=== PATIENT | male | born 1945 | race Caucasian/White ===

== ENCOUNTER 2016-10-28 18:36 | Inpatient (IN) | payer BC, MEDICARE ==
--- NOTE | 2016-10-28 20:23 | RAD ---
HISTORY: Fall from ladder, left thigh pain COMPARISONS: None VIEWS: 5, Frontal and lateral views of the left femur FINDINGS: BONE DENSITY: Normal. BONES: There is an intertrochanteric fracture of the proximal left femur with approximately 1.4 cm of distraction of the distal fragment with suspected the proximal fragment. JOINTS: There is no arthropathy. ALIGNMENT: There is no dislocation. SOFT TISSUES: Unremarkable. OTHER FINDINGS: Brachytherapy seeds are noted IMPRESSION: FRACTURE OF THE PROXIMAL LEFT FEMUR
--- NOTE | 2016-10-28 20:24 | RAD ---
HISTORY: Fall from ladder, left thigh pain COMPARISONS: Left femur dated October 28, 2016 VIEWS: 1, Single frontal view of the pelvis FINDINGS: BONE DENSITY: Normal. BONES: Again noted is a somewhat displaced intertrochanteric fracture of the proximal left femur JOINTS: There is no arthropathy. ALIGNMENT: There is no dislocation. SOFT TISSUES: Brachytherapy seeds are noted OTHER FINDINGS: Degenerative changes are noted of the spine IMPRESSION: AGAIN NOTED IS A FRACTURE OF THE PROXIMAL LEFT FEMUR
--- NOTE | 2016-10-28 20:26 | RAD ---
HISTORY: Fall from ladder, left thigh pain COMPARISONS: August 15, 2013 VIEWS:1: Single frontal portable view of the chest at 7:51 PM FINDINGS: LINES AND TUBES: None. CARDIOMEDIASTINAL SILHOUETTE: The cardiomediastinal silhouette is normal for portable technique. PLEURA: The costophrenic angles are sharp. No pleural abnormalities are noted. LUNG PARENCHYMA: The lungs are clear. ABDOMEN: The upper abdomen is clear. There is no subphrenic gas. BONES AND SOFT TISSUES: No bone or soft tissue abnormalities are noted. There are small radiopaque foreign bodies overlying the left and right lower hemithorax. It is unclear this is overlying the patient or within the patient. IMPRESSION: SMALL RADIOPAQUE FOREIGN BODIES OVERLYING THE LOWER CHEST. IT IS UNCLEAR IF THIS IS ARTIFACT OVERLYING THE PATIENT OR WITHIN THE CHEST. OTHERWISE, NO ACTIVE CARDIOPULMONARY DISEASE
[2016-10-28 20:32] LABS: Hematocrit 40 % (42-52); Hemoglobin 13.4 g/dl (14.0-18.0); Mean Corpuscular HGB Conc 33 g/dl (31-36); Mean Corpuscular Hemoglobin 30 pg (27-31); Mean Corpuscular Volume 90 fL (80-94); Mean Platelet Volume 8 um3 (7.4-10.4); Red Blood Count 4.46 10^6/ul (4.0-5.4); Red Cell Distribution Width 13 % (10.5-15); White Blood Count 14.2 10^3/ul (3.5-10.8)
[2016-10-28 20:50] LABS: Albumin 4.2 g/dL (3.2-5.2); BUN/Creatinine Ratio 27.2 (8-20); Calcium 9.4 mg/dL (8.6-10.3); EGFR African American 120.8 (>60); EGFR Non-African American 93.9 (>60); Potassium 3.8 mmol/L (3.5-5.0); Total Bilirubin 0.4 mg/dL (0.2-1.0); Total Protein 7.2 g/dL (6.4-8.9)
[2016-10-28] MEDS ORDERED: NS 0.9% 1000 ML* 1,000 ML IV ONE (21:18)
--- NOTE | 2016-10-28 21:24 | RAD ---
HISTORY: Fall, fracture, history of prostate cancer COMPARISONS: Plain film dated October 28, 2016 TECHNIQUE: Multiple contiguous axial CT images are obtained of the left femur, with coronal and sagittal multiplanar reconstructions, without intravenous contrast administration. FINDINGS: BONE DENSITY: Normal. BONES: Again noted is a comminuted intertrochanteric fracture of the proximal left femur. There is diastasis along the fracture line, with approximately 1.4 cm of displacement of the distal fragment with respect to the proximal fragment. JOINTS: There is mild osteoarthritis of the hip and knee. MUSCULATURE: Unremarkable ALIGNMENT: There is no dislocation. SOFT TISSUES: Brachytherapy seeds are noted. OTHER FINDINGS: None. IMPRESSION: AGAIN NOTED IS A COMMINUTED AND SOMEWHAT DISPLACED FRACTURE OF THE PROXIMAL LEFT FEMUR
[2016-10-28] MEDS ORDERED: hydrALAZINE IV* 20 MG/ML VIAL IV PRN (23:22)
[2016-10-28] MEDS ORDERED: Morphine INJ* 2 MG/ML 1 ML CARPUJECT IV PRN (23:22)
[2016-10-28] MEDS ORDERED: Acetaminophen TAB* 325 MG ONE (23:32)
[2016-10-28] MEDS: Acetaminophen TAB* 325 MG PO PRN (23:33)
[2016-10-28] MEDS: NS 0.9% 1000 ML* 1,000 ML IV SCH (23:35)
--- NOTE | 2016-10-29 01:03 | HP ---
ADMISSION HISTORY AND PHYSICAL: DATE OF ADMISSION: 10/28/16 PRIMARY CARE PROVIDER: Dr. Beavers. HEALTHCARE PROXY: . CODE STATUS: Full. SOURCE OF HISTORY: History obtained from interview with the patient and his . RELIABILITY: Fair. CHIEF COMPLAINT: Fall with hip pain. HISTORY OF PRESENT ILLNESS: This is a 70-year-old man with past medical history of prostate cancer in 2002, status post radiation and bead implantation , last PSA checked 1-1/2 years ago which was normal per patient report. He was in his usual state of health, on a ladder emptying the gutter today when he suffered a fall after the ladder slipped out from under him with fall on his hip with immediate pain. The patient presented to the emergency room. Imaging was consistent with a comminuted and somewhat displaced fracture of the proximal left femur. The hospitalist service was consulted for admission. There was some concern that the bone appeared abnormal on x-ray and the CT was ordered to further investigate. The concern is that this is pathological fracture potentiated by underlying prostate cancer. The patient has previous history of prostate cancer 13 years prior. He has been in very good health. He rides his bike to work to [place] every day uphill, usually takes state 3. Two years prior was the last time he completed around the [place], 100 miles. He never experienced chest pain, shortness of breath. He has no diabetes or known kidney injury. His only anesthesia was in the setting of having the beads inserted for his prostate cancer which he did not suffer any adverse effects. In the emergency room, he received minimal analgesics secondary to his lack of pain. He is pleasant on interview and noted no pain in his left hip if he did not move it. PAST MEDICAL HISTORY: Prostate cancer in 2002, status post rads and implantation of beads. MEDICATIONS: Flomax 0.4 mg. ALLERGIES: No known drug allergies. FAMILY HISTORY: Brother had lung cancer associated with smoking. No history of CAD. 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 Smoked 2 to 5 years when he was a student, 50 years prior, drinks a glass of wine or beer every other day. No history of illicits. He lives with his . REVIEW OF SYSTEMS: Negative for all systems reviewed except for pain in his left hip. PHYSICAL EXAMINATION GENERAL: Younger than stated age, lying flat in bed, interactive, no apparent distress. VITALS: When seen by this author ,167/73, heart rate 79, respiratory rate 18, T - max in the emergency room 98.3, 98% on room air. HEENT: Oropharynx is clear. He has dry mucous membranes. Sclerae anicteric. NECK: Non-elevated JVD. No cervical or supraclavicular lymphadenopathy. LUNGS: Clear to auscultation bilaterally. HEART: Regular rate and rhythm. No murmurs, rubs or gallops. ABDOMEN: Soft, nontender, nondistended. There are positive bowel sounds. EXTREMITIES: Warm and well-perfused. He has 2+ peripheral pulses and radial DP and TP. 1 to 2+ pitting edema, bilateral lower extremities. Less than 2- second cap refill. Good skin turgor. Intact sensation in bilateral lower extremities. Neurovascular function intact. NEURO: He is A and O x3. His cranial nerves II through XII are intact. DIAGNOSTIC STUDIES/LAB DATA: Labs reviewed. White blood cell count is 14.2, 87.2% neutrophils, hemoglobin 13.4, no prior for comparison, platelets 206. INR 0.98. BUN 22, creatinine 0.81. Lactic acid 1.4. Data reviewed. CT lower extremity, impression: Comminuted and somewhat displaced fracture of the proximal left femur. ASSESSMENT AND PLAN: A 70-year-old man with past medical history of prostate cancer, suffered fall from a ladder, complicated by a left femoral fracture. Left femoral fracture. Nuclear bone scan after discussion with Dr. Virgen. Dr. Virgen will see tomorrow. Remain n.p.o. for possible OR in the afternoon. The patient would like to avoid strong medications for pain. Tylenol 975 mg 3 times a day as needed with morphine 2 mg IV backup. Maintenance fluids while he remains n.p.o. History of prostate cancer. Check PSA in the morning. Bone scan as indicated above. Hypertension. Likely in the setting of pain. On no home oral medications. Hydralazine p.r.n. if systolic blood pressure is greater than 180 or diastolic is greater than 110, reevaluate after pain better controlled. FEN, n.p.o. except for meds. Maintenance fluids at 75 cc per hour. Code status. Full. CC: Dr. Beavers* [id number]/[facility] #: [id number] [facility]
[2016-10-29] MEDS: Heparin VIAL(*) 5000 UNITS/ML VIAL (FIVE THOUSAND) SUBCUT SCH ×3 (05:53→23:02)
[2016-10-29 06:44] LABS: Hematocrit 36 % (42-52); Hemoglobin 12.3 g/dl (14.0-18.0); Mean Corpuscular HGB Conc 34 g/dl (31-36); Mean Corpuscular Hemoglobin 31 pg (27-31); Mean Corpuscular Volume 90 fL (80-94); Mean Platelet Volume 8 um3 (7.4-10.4); Red Cell Distribution Width 13 % (10.5-15); White Blood Count 6.4 10^3/ul (3.5-10.8)
[2016-10-29 07:03] LABS: BUN/Creatinine Ratio 19.5 (8-20); Calcium 8.5 mg/dL (8.6-10.3); EGFR African American 128.1 (>60); EGFR Non-African American 99.6 (>60); Potassium 3.6 mmol/L (3.5-5.0)
[2016-10-29] MEDS: Acetaminophen TAB* 325 MG PO PRN (07:51)
[2016-10-29] MEDS: Tamsulosin CAP* 0.4 MG PO SCH (07:51)
[2016-10-29] MEDS ORDERED: Pneumococcal *Vac Polyvalent 0.5 ML VIAL IM ONE (09:00)
[2016-10-29] MEDS ORDERED: Influenza VAC *QUAD* 2016-17* 0.5 ML SYRINGE IM ONE (09:00)
[2016-10-29] MEDS ORDERED: Buffered Lidocaine 1% SYR 3ML* 3 ML/SYR SYRINGE INTRADERM ONE (11:28)
--- NOTE | 2016-10-29 12:30 | RAD ---
INDICATION: Prostate carcinoma evaluate for metastatic disease. Comparison: Correlation is made with a prior x-ray study of the pelvis from October 28, 2016. Technique: The patient was given an intravenous injection of 22.0 mCi of technetium 99m HDP, and the whole body was imaged in both the anterior and posterior projections. FINDINGS: There is abnormal increased activity present in the proximal left femur correlating with the patient's known intertrochanteric hip fracture. There is mild abnormal increased activity present within the knees and ankles and feet most consistent with arthritic change. No other abnormal foci of increased activity are seen. There is normal bilateral renal activity. IMPRESSION: 1. NO EVIDENCE FOR METASTATIC DISEASE. 2. INCREASED ACTIVITY IN THE PROXIMAL LEFT FEMUR CORRELATING WITH THE PATIENT'S KNOWN HIP FRACTURE. CPT II Codes: 3570F
[2016-10-29] MEDS ORDERED: Bupivacaine 0.5% SDV PF* 30 ML VIAL ONE ×2 (14:16→16:28)
--- NOTE | 2016-10-29 14:55 | PN ---
Subjective Date of Service: 10/29/16 Interval History: Mr. Cortez complains of some hip pain but he denies other complaint including chest pain, SOB, nausea, or abdominal pain. Objective Active Medications: Acetaminophen (Tylenol Tab*) 975 mg PO TID PRN Famotidine (Pepcid Iv*) 20 mg IV ONCE ONE Heparin Sodium (Porcine) (Heparin Vial(*)) 5,000 units SUBCUT Q8HR CADEN Hydralazine HCl (Apresoline Iv*) 5 mg IV Q6H PRN Sodium Chloride (Ns 0.9% 1000 Ml*) 1,000 mls @ 75 mls/hr IV PER RATE CADEN Lactated Ringer's (Lactated Ringers 1000 Ml Bag*) 1,000 mls @ 125 mls/hr IV PER RATE CADEN Influenza Virus Vaccine (Fluarix *Quad* *) 0.5 ml IM .ONCE ONE Metoclopramide HCl (Reglan Tab*) 10 mg PO ONCE ONE Morphine Sulfate (Morphine Inj (Syringe)*) 2 mg IV Q3H PRN Pneumococcal Polyvalent Vaccine (Pneumococcal Vac Polyvalent*) 0.5 ml IM .ONCE ONE Tamsulosin HCl (Flomax Cap*) 0.4 mg PO DAILY [facility] Vital Signs 10/28/16 10/28/16 10/29/16 23:30 23:53 00:46 Temperature 98.2 F 97.8 F Pulse Rate 77 71 Respiratory 16 Rate Blood Pressure 164/75 152/67 (mmHg) O2 Sat by Pulse 97 99 Oximetry 10/29/16 10/29/16 10/29/16 00:49 01:31 03:39 Temperature 97.8 F 97.6 F Pulse Rate 71 72 Respiratory 16 16 16 Rate Blood Pressure 152/67 118/65 (mmHg) O2 Sat by Pulse 99 99 Oximetry 10/29/16 10/29/16 10/29/16 07:13 08:00 11:19 Temperature 98.0 F 97.7 F Pulse Rate 69 68 Respiratory 16 16 17 Rate Blood Pressure 141/68 134/59 (mmHg) O2 Sat by Pulse 97 99 Oximetry Oxygen Devices in Use Now: None Appearance: Male lying in bed in NAD Respiratory: Symmetrical Chest Expansion and Respiratory Effort, Clear to Auscultation Cardiovascular: NL Sounds; No Murmurs; No JVD, No Edema Abdominal: NL Sounds; No Tenderness; No Distention Extremities: No Edema Skin: No Rash or Ulcers Neurological: Alert and Oriented x 3, NL Muscle Strength and Tone Nutrition: Taking PO's Result Diagrams: 10/29/16 06:16 10/29/16 06:16 Assess/Plan/Problems-Billing Assessment: Mr. Cortez is a 70 yo male with a PMH of prostate cancer who was admitted on 10/28/16 with a left hip fracture. - Patient Problems (1) Closed left hip fracture Comment: Management per ortho, plan for surgery today. Pain meds prn, bowel regimen. (2) Prostate cancer Comment: S/P radiation. Continue flomax. (3) Hypertension Comment: SBP 110-130s. High blood pressure earlier likely due to pain. (4) DVT prophylaxis Comment: Heparin SQ. (5) Full code status Status and Disposition: Inpatient. Disposition per ortho.
--- NOTE | 2016-10-29 15:26 | CONS ---
CC: Dr. Beavers CONSULTATION REPOT: DATE OF CONSULT: 10/29/16 ADMISSION ATTENDING PHYSICIAN: Jamar Rahman MD. CONSULTING PHYSICIAN: Jeremie Virgen MD. HEALTHCARE PROXY: His . PRIMARY CARE PHYSICIAN: Dr. Beavers. CODE STATUS: Full code. CHIEF COMPLAINT: Left hip pain. HISTORY OF PRESENT ILLNESS: Briefly, Norm Cortez is a 70-year-old male with a past medical history of prostate cancer, status post radiation and bead implantation, who was in his usual state of health, on the ladder, emptying the gutter and he suffered a fall about 5 to 6 feet down and he had immediate pain in his left hip. He states he bounced a few times. He then came to the ED after which he underwent imaging and was diagnosed with a proximal femur fracture. At that time, Orthopedics was consulted. There was concern because of his history of prostate cancer that it was an unusual fracture and CT scan imaging was done, which revealed no obvious mass after which he was then admitted to the medicine service for medical optimization. He states that he is a community ambulator. 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 He, otherwise, is in his usual state of health. His last PSA was checked about 1-1/2 years ago and his cancer history was about 13 to 15 years ago. He is very active and he bikes in general. He had no left hip pain prior to this incident although he has had falls in the past. Approximately 1 year ago, he fell in [facility] and underwent xrays which diagnosed him with a "chip in his hip". He did not have this treated and was able to continue to [place] and bike with time. PAST MEDICAL HISTORY: Significant for prostate cancer in 2002. PAST SURGICAL HISTORY: Significant for prostatectomy with implantation of beads. MEDICATIONS: Include Flomax. ALLERGIES: None. FAMILY HISTORY: Significant for brother who had lung cancer associated with smoking. No history of coronary artery disease or diabetes. 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 He drinks a glass of wine or beer every other day. He denies illicits. He lives with his . He is a community ambulator. REVIEW OF SYSTEMS: A 14-point review of systems was reviewed with the patient and significant only for the above complaints. Otherwise, remainder of the systems is negative. PHYSICAL EXAMINATION: GENERAL: He is in no acute distress. He is well developed, well nourished. He is alert and oriented x3. He is conversant. VITAL SIGNS: Temperature of 97.6, pulse is 72, respiratory rate 16, O2 of 99% on room air. Blood pressure 118/65. HEENT: EOMI. LUNGS: Chest is clear to auscultation bilaterally. HEART: Regular rate and rhythm. No murmurs, rubs or gallops. ABDOMEN: Soft, nontender. EXTREMITIES: Examination of the left lower extremity demonstrates an externally rotated hip. His calf is soft and nontender. He is able to dorsiflex and plantarflex his ankle. He is sensate to light touch about the first dorsal web space. Medial, lateral, dorsal and plantar foot, he has a palpable posterior tib pulse. He is nontender about his knee or ankle. LABORATORY STUDIES: He has this morning a white count of 6.4, hematocrit of 36 , platelet count of 191. Yesterday's PTT and INR are 28.3 and 0.98 respectively. BMP today, sodium 135, potassium 3.6, chloride 104, carbon dioxide 25, BUN 15, creatinine 0.77, glucose 100, calcium 8.5. PSA is 0.019. X-rays and CT scans demonstrate an intertrochanteric fracture with some displacement and slight basicervical involvement. He also has complete displacement of the greater trochanter which appears to be chronic. There are no lesions in the bone that are evident. There are no other lesions in the pelvis that are evident. There is no obvious lesion in the femur that indicates a lytic lesion. ASSESSMENT AND PLAN: He does have a remote history of prostate cancer. He has been in remission for several years. He has a normal PSA today and had a previous normal PSA. He has had no symptoms of hip pain prior to this. We will treat him with a short intramedullary nail for his left hip after he undergoes medical optimization. I will also obtain a bone scan in the morning prior to surgery to make sure he does not have any lesions anywhere else in the body. We will also do a biopsy at the time of surgery. [id number]/[facility] #: [id number] MTDD
[2016-10-29] MEDS ORDERED: Famotidine IV* 10 MG/ML 2 ML (20 mg) IV ONE (16:00)
[2016-10-29] MEDS ORDERED: Metoclopramide TAB* 10 MG PO ONE (16:00)
[2016-10-29] MEDS ORDERED: Propofol* 10 MG/ML 20 ML BTL IV PUSH ONE (16:28)
[2016-10-29] MEDS ORDERED: Dexamethasone IV* 4 MG/ML 1 ML (4 MG) ONE (16:28)
[2016-10-29] MEDS ORDERED: Lidocaine 2% PF* 10 ML AMP ONE (16:28)
[2016-10-29] MEDS ORDERED: Ketorolac INJ* 30 MG/ML 1 ML VIAL ONE (16:28)
[2016-10-29] MEDS ORDERED: Ondansetron INJ* 2 MG/ML VIAL ONE (16:28)
[2016-10-29] MEDS ORDERED: KETAMINE HCL* 50 MG/ML 10 ML VIAL ONE (16:29)
[2016-10-29] MEDS ORDERED: Midazolam* 1 MG/ML 5 ML VIAL (5 MG) ONE (16:29)
[2016-10-29] MEDS ORDERED: fentaNYL* 50 MCG/ML 2 ML VIAL (100 MCG VIAL) ONE (16:29)
[2016-10-29] MEDS ORDERED: Morphine PF AMP (0.5MG/ML)* 5 MG/10 ML AMP ONE (16:29)
[2016-10-29] MEDS ORDERED: Metoclopramide TAB* 10 MG ONE (16:40)
[2016-10-29] MEDS ORDERED: Famotidine IV* 10 MG/ML 2 ML (20 mg) ONE (16:40)
[2016-10-29] MEDS ORDERED: Propofol* 500 MG/50 ML BTL ONE (18:06)
[2016-10-29] MEDS ORDERED: ceFAZolin 2 GM PREMIX (*) 2 GM/50 ML BAG IVPB ONE (18:30)
[2016-10-29] MEDS ORDERED: Ondansetron INJ* 2 MG/ML VIAL IV PRN ×2 (19:32→19:35)
[2016-10-29] MEDS ORDERED: diPHENhydraMINE IV* 50 MG/ML 1 ml VIAL (BENADRYL) IV PRN (19:35)
[2016-10-29] MEDS ORDERED: Naloxone* 0.4 MG/ML 1 ML VIAL IV PRN (19:35)
[2016-10-29] MEDS: Acetaminophen TAB* 325 MG PO SCH (21:52)
[2016-10-30] MEDS: NS 0.9% 1000 ML* 1,000 ML IV SCH (00:43)
[2016-10-30] MEDS: Heparin VIAL(*) 5000 UNITS/ML VIAL (FIVE THOUSAND) SUBCUT SCH ×2 (06:48→15:28)
--- NOTE | 2016-10-30 07:30 | PN ---
Progress Note - Progress Note Note: Case cancelled last evening due to contamination issues with instrumentation. Also, discussed with family that the fracture is more complex than originally anticipated. Discussed today with patient the same fracture pattern and his options. I would still recommend the original plan for surgery. He may seek a second opinion. Pt comfortable. Rankin in place. at bedside Temp Pulse Resp BP Pulse Ox 98.0 F 66 16 112/58 98 10/30/16 03:42 10/30/16 03:42 10/30/16 03:42 10/30/16 03:42 10/30/16 03:42 NAD. left leg skin intact. SILT grossly distally. Brisk cap refill. A/P Pt with left intertrochanteric hip fracture with extension into femoral neck. He also has previous history of greater trochanter fracture that is completely displaced from a previous injury. I would still recommend IMN of left hip however I discussed that there are other treatment options, specifically a blade plate or proximal femoral replacement. Bone scan negative for lesions. NPO for possible surgery today Pt and will discuss options and may elect for transfer to [place] for definitive management. Else, would plan for IMN of left hip today. SCDs Abx OCTOR analgesia
[2016-10-30] MEDS: Acetaminophen TAB* 325 MG PO SCH ×3 (07:41→21:33)
[2016-10-30] MEDS: Tamsulosin CAP* 0.4 MG PO SCH (07:41)
[2016-10-30] MEDS ORDERED: Buffered Lidocaine 1% SYR 3ML* 3 ML/SYR SYRINGE INTRADERM SCH (12:37)
[2016-10-30] MEDS ORDERED: Famotidine IV* 10 MG/ML 2 ML (20 mg) IV SCH (12:37)
[2016-10-30] MEDS ORDERED: Famotidine IV* 10 MG/ML 2 ML (20 mg) ONE (13:22)
[2016-10-30] MEDS ORDERED: Midazolam* 1 MG/ML 2 ML VIAL (2 MG) ONE (14:05)
[2016-10-30] MEDS ORDERED: Morphine PF AMP (0.5MG/ML)* 5 MG/10 ML AMP ONE (14:06)
--- NOTE | 2016-10-30 14:51 | PN ---
Subjective Date of Service: 10/30/16 Interval History: Mr. Cortez is examined in the immediate post-operative period while still in the PACU. He denies any complaint including chest pain, SOB, nausea, or abdominal pain. Objective Active Medications: Acetaminophen (Tylenol Tab*) 975 mg PO TID PRN Acetaminophen (Tylenol Tab*) 975 mg PO TID [facility] Famotidine (Pepcid Iv*) 20 mg IV ONCE [facility] Heparin Sodium (Porcine) (Heparin Vial(*)) 5,000 units SUBCUT Q8H CADEN Hydralazine HCl (Apresoline Iv*) 5 mg IV Q6H PRN Sodium Chloride (Ns 0.9% 1000 Ml*) 1,000 mls @ 75 mls/hr IV PER RATE CADEN Lactated Ringer's (Lactated Ringers 1000 Ml Bag*) 1,000 mls @ 125 mls/hr IV PER RATE [facility] Influenza Virus Vaccine (Fluarix *Quad* *) 0.5 ml IM .ONCE ONE Lidocaine/Sodium Bicarbonate (Buffered Lidocaine 1% Syrin*) 0.2 ml INTRADERM ONCE [facility] Morphine Sulfate (Morphine Inj (Syringe)*) 2 mg IV Q3H PRN Pneumococcal Polyvalent Vaccine (Pneumococcal Vac Polyvalent*) 0.5 ml IM .ONCE ONE Tamsulosin HCl (Flomax Cap*) 0.4 mg PO DAILY [facility] Vital Signs 10/29/16 10/29/16 10/29/16 15:13 19:29 19:35 Temperature 97.7 F 97.7 F Pulse Rate 65 57 59 Respiratory 15 11 11 Rate Blood Pressure 137/72 108/64 109/53 (mmHg) O2 Sat by Pulse 100 100 100 Oximetry 10/29/16 10/29/16 10/29/16 19:40 19:45 19:50 Temperature Pulse Rate 64 66 65 Respiratory 11 10 12 Rate Blood Pressure 116/58 109/58 130/57 (mmHg) O2 Sat by Pulse 100 100 100 Oximetry 10/29/16 10/29/16 10/29/16 19:59 20:15 20:29 Temperature Pulse Rate 59 58 61 Respiratory 10 10 14 Rate Blood Pressure 127/65 122/56 138/60 (mmHg) O2 Sat by Pulse 100 98 100 Oximetry 10/29/16 10/29/16 10/29/16 20:55 22:00 23:46 Temperature 97.4 F 97.3 F Pulse Rate 59 59 Respiratory 16 16 16 Rate Blood Pressure 135/61 121/62 (mmHg) O2 Sat by Pulse 100 100 Oximetry 10/30/16 10/30/16 10/30/16 03:42 07:32 08:00 Temperature 98.0 F 97.9 F Pulse Rate 66 63 Respiratory 16 16 18 Rate Blood Pressure 112/58 117/61 (mmHg) O2 Sat by Pulse 98 98 98 Oximetry 10/30/16 10/30/16 08:48 11:39 Temperature 97.8 F Pulse Rate 63 Respiratory 16 Rate Blood Pressure 109/49 (mmHg) O2 Sat by Pulse 98 96 Oximetry Oxygen Devices in Use Now: None Appearance: Male lying in bed in NAD Eyes: No Scleral Icterus Ears/Nose/Mouth/Throat: Mucous Membranes Moist Respiratory: Symmetrical Chest Expansion and Respiratory Effort, Clear to Auscultation Cardiovascular: NL Sounds; No Murmurs; No JVD, No Edema Abdominal: NL Sounds; No Tenderness; No Distention Extremities: No Edema Skin: No Rash or Ulcers Neurological: Alert and Oriented x 3, NL Muscle Strength and Tone Result Diagrams: 10/29/16 06:16 10/29/16 06:16 Assess/Plan/Problems-Billing Assessment: Mr. Cortez is a 70 yo male with a PMH of prostate cancer who was admitted on 10/28/16 with a left hip fracture. - Patient Problems (1) Closed left hip fracture Comment: POD # 0, management per ortho. Pain meds prn, bowel regimen. PT/OT. Monitor H/H. (2) Prostate cancer Comment: S/P radiation. Continue flomax. (3) Hypertension Comment: SBP 110-130s. High blood pressure earlier likely due to pain. (4) DVT prophylaxis Comment: Heparin SQ. (5) Full code status Status and Disposition: Inpatient. Disposition per ortho.
[2016-10-30] MEDS ORDERED: ceFAZolin 2 GM PREMIX (*) 2 GM/50 ML BAG IVPB ONE (15:08)
[2016-10-30] MEDS ORDERED: Ketorolac INJ* 30 MG/ML 1 ML VIAL IV PRN (16:18)
[2016-10-30] MEDS ORDERED: Ondansetron INJ* 2 MG/ML VIAL IV PRN (16:18)
[2016-10-30] MEDS ORDERED: oxyCODONE/Acetamin 5/325 MG* TAB PO PRN (16:18)
[2016-10-30] MEDS ORDERED: Naloxone* 0.4 MG/ML 1 ML VIAL IV PRN (16:18)
[2016-10-30] MEDS ORDERED: PROCHLORPERAZINE INJ 5 MG/ML 2 ML VIAL IV PRN (16:18)
--- NOTE | 2016-10-30 17:47 | RAD ---
INDICATION: Left hip fracture, left hip ORIF COMPARISONS: October 28, 2016 TECHNIQUE: Fluoroscopy was provided for a surgical procedure. Total fluoroscopy time is: 1 minute, 2.9 seconds FINDINGS: Spot images of restricted internal fixation of the proximal left femur IMPRESSION: FLUOROSCOPY WAS PROVIDED FOR A SURGICAL PROCEDURE CPT II Codes: 6045F
[2016-10-30] MEDS: Docusate CAP* 100 MG PO SCH (21:33)
[2016-10-30] MEDS: ceFAZolin 1 GM in Dextrose (*) 1 GM/50 ML BAG IVPB SCH (21:33)
[2016-10-30] MEDS ORDERED: Nalbuphine* 20 MG/ML 1 ML VIAL IV PRN (21:52)
[2016-10-30] MEDS ORDERED: Nalbuphine* 20 MG/ML 1 ML VIAL ONE (22:06)
[2016-10-31] MEDS: ceFAZolin 1 GM in Dextrose (*) 1 GM/50 ML BAG IVPB SCH ×2 (03:47→09:03)
--- NOTE | 2016-10-31 06:54 | PN ---
Subjective Date of Service: 10/31/16 Interval History: Mr. Cortez states that he is feeling great today. He reports ambulating to the door and doing very well with both PT and OT. He denies complaint including chest pain, SOB, nausea, or abdominal pain. Objective Active Medications: Acetaminophen (Tylenol Tab*) 975 mg PO TID PRN Acetaminophen (Tylenol Tab*) 975 mg PO TID [facility] Docusate Sodium (Colace Cap*) 100 mg PO BID [facility] Enoxaparin Sodium (Lovenox(*)) 40 mg SUBCUT DAILY [facility] Hydralazine HCl (Apresoline Iv*) 5 mg IV Q6H PRN Cefazolin Sodium/Dextrose (Kefzol 1 Gm In Dextrose Duplex (*)) 1 gm in 50 mls @ 200 mls/hr IVPB Q6H [facility] Influenza Virus Vaccine (Fluarix *Quad* *) 0.5 ml IM .ONCE ONE Ketorolac Tromethamine (Toradol Inj*) 15 mg IV Q6H PRN Morphine Sulfate (Morphine Inj (Syringe)*) 2 mg IV Q3H PRN Nalbuphine HCl (Nubain*) 5 mg IV Q6H PRN Naloxone HCl (Narcan*) 0.08 mg IV Q2M PRN Ondansetron HCl (Zofran Inj*) 2 mg IV Q6H PRN Oxycodone/Acetaminophen (Percocet 5/325 Tab*) 1 tab PO Q3H PRN Oxycodone/Acetaminophen (Percocet 5/325 Tab*) 1 tab PO Q4H PRN Pneumococcal Polyvalent Vaccine (Pneumococcal Vac Polyvalent*) 0.5 ml IM .ONCE ONE Prochlorperazine Edisylate (Compazine Inj*) 2.5 mg IV Q6H PRN Tamsulosin HCl (Flomax Cap*) 0.4 mg PO DAILY [facility] Vital Signs 10/30/16 10/30/16 10/30/16 07:32 08:00 08:48 Temperature 97.9 F Pulse Rate 63 Respiratory 16 18 Rate Blood Pressure 117/61 (mmHg) O2 Sat by Pulse 98 98 98 Oximetry 10/30/16 10/30/16 10/30/16 11:39 17:19 17:25 Temperature 97.8 F 97.0 F Pulse Rate 63 62 66 Respiratory 16 16 16 Rate Blood Pressure 109/49 109/52 109/47 (mmHg) O2 Sat by Pulse 96 98 99 Oximetry 10/30/16 10/30/16 10/30/16 17:30 17:35 17:45 Temperature Pulse Rate 63 64 63 Respiratory 16 17 18 Rate Blood Pressure 124/53 119/54 127/56 (mmHg) O2 Sat by Pulse 99 99 99 Oximetry 10/30/16 10/30/16 10/30/16 18:00 18:15 18:30 Temperature Pulse Rate 65 65 63 Respiratory 18 16 17 Rate Blood Pressure 141/56 132/67 131/56 (mmHg) O2 Sat by Pulse 97 97 97 Oximetry 10/30/16 10/30/16 10/30/16 18:45 19:00 19:19 Temperature 97.8 F Pulse Rate 64 63 66 Respiratory 16 16 12 Rate Blood Pressure 107/42 118/52 134/67 (mmHg) O2 Sat by Pulse 97 97 99 Oximetry 10/30/16 10/30/16 10/30/16 19:28 19:37 20:27 Temperature 97.8 F 98.1 F Pulse Rate 66 82 Respiratory 14 12 16 Rate Blood Pressure 134/67 122/45 (mmHg) O2 Sat by Pulse 99 99 Oximetry 10/30/16 10/30/16 10/30/16 21:19 22:11 23:11 Temperature 97.2 F Pulse Rate 81 Respiratory 16 16 16 Rate Blood Pressure 125/44 (mmHg) O2 Sat by Pulse 100 Oximetry 10/30/16 10/31/16 10/31/16 23:32 00:00 01:20 Temperature 98.1 F 98.4 F Pulse Rate 84 77 Respiratory 16 16 Rate Blood Pressure 123/47 124/58 (mmHg) O2 Sat by Pulse 96 98 98 Oximetry 10/31/16 10/31/16 04:11 06:41 Temperature 98.3 F Pulse Rate 68 Respiratory 20 16 Rate Blood Pressure 118/51 (mmHg) O2 Sat by Pulse 97 Oximetry Oxygen Devices in Use Now: None Appearance: Male sitting up in chair in NAD Respiratory: Symmetrical Chest Expansion and Respiratory Effort, Clear to Auscultation Cardiovascular: NL Sounds; No Murmurs; No JVD, No Edema Abdominal: NL Sounds; No Tenderness; No Distention Extremities: No Edema Skin: No Rash or Ulcers Neurological: Alert and Oriented x 3, NL Muscle Strength and Tone Nutrition: Taking PO's Result Diagrams: 10/31/16 09:20 10/31/16 09:20 Assess/Plan/Problems-Billing Assessment: Mr. Cortez is a 70 yo male with a PMH of prostate cancer who was admitted on 10/28/16 with a left hip fracture. - Patient Problems (1) Closed left hip fracture Comment: POD # 1, management per ortho. Pain meds prn, bowel regimen. PT/OT. Monitor H/H. (2) Prostate cancer Comment: S/P radiation. Continue flomax. (3) Hypertension Comment: SBP 110-130s. High blood pressure earlier likely due to pain. (4) DVT prophylaxis Comment: Heparin SQ. (5) Full code status Status and Disposition: Inpatient. Disposition per ortho.
--- NOTE | 2016-10-31 08:31 | PN ---
Progress Note - Progress Note Note: POD#1 from L hip IMN with biopsy Doing well. slight discomfort. Sitting up working on laptop this AM Temp Pulse Resp BP Pulse Ox 98.3 F 75 18 120/49 94 10/31/16 07:33 10/31/16 07:33 10/31/16 07:33 10/31/16 07:33 10/31/16 07:33 NAD. left hip dressing intact. calf soft, nontender. SILT grossly distally, brisk cap refill. A/P POD#1 from L hip IMN. follow up pathology partial weight bearing PT/OT post op abx dvt ppx for 6 weeks with lovenox dressing change tomorrow dispo when stable. labs pending
[2016-10-31] MEDS: Acetaminophen TAB* 325 MG PO SCH ×3 (09:00→20:26)
[2016-10-31] MEDS: Docusate CAP* 100 MG PO SCH ×2 (09:00→20:26)
[2016-10-31] MEDS ORDERED: Pneumococcal *Vac Polyvalent 0.5 ML VIAL IM ONE (09:00)
[2016-10-31] MEDS: Tamsulosin CAP* 0.4 MG PO SCH (09:00)
[2016-10-31] MEDS ORDERED: Influenza VAC *QUAD* 2016-17* 0.5 ML SYRINGE IM ONE (09:00)
[2016-10-31] MEDS: Enoxaparin(*) 40 MG/0.4 ML SYR SUBCUT SCH (09:01)
[2016-10-31 09:43] LABS: Hematocrit 35 % (42-52); Hemoglobin 11.7 g/dl (14.0-18.0); Mean Corpuscular HGB Conc 34 g/dl (31-36); Mean Corpuscular Hemoglobin 31 pg (27-31); Mean Corpuscular Volume 91 fL (80-94); Mean Platelet Volume 8 um3 (7.4-10.4); Red Blood Count 3.82 10^6/ul (4.0-5.4); Red Cell Distribution Width 13 % (10.5-15)
[2016-10-31 09:51] LABS: BUN/Creatinine Ratio 17.9 (8-20); Calcium 8.4 mg/dL (8.6-10.3); EGFR African American 115.8 (>60); EGFR Non-African American 90.1 (>60); Potassium 3.6 mmol/L (3.5-5.0)
--- NOTE | 2016-10-31 09:55 | PN ---
Progress Note - Progress Note Note: The pt is doing well this AM. He is sitting in a chair. Good pain control. He was a little sleepy, and had some itching. Neuro ok, VSS. s/p nailing of hip, continue oral meds.
--- NOTE | 2016-10-31 14:17 | OP ---
CC: Dr. Beavers OPERATIVE REPORT: DATE OF OPERATION: 10/30/16 DATE OF : 43 SURGEON: Jeremie Virgen MD TALENT RECRUITER: MERYL Bhat An certified nursing assistant was needed for the entirety of the case to help with positioning, retraction, and was utilized throughout all portions. ANESTHESIOLOGIST: Dr. De Leon. ANESTHESIA: Spinal with local MAC. PREOPERATIVE DIAGNOSIS: Left hip intertrochanteric fracture with extension into the femoral neck. POSTOPERATIVE DIAGNOSIS: Left hip intertrochanteric fracture with extension into the femoral neck. OPERATIVE PROCEDURE: Left hip intramedullary nail. Biopsy of the intramedullary canal on the femoral head. SPECIMEN: Reamings from the fracture. COMPLICATIONS: None. ESTIMATED BLOOD LOSS: 100 cc. IMPLANTS USED: Synthes TFN short nail 11 x 170 mm and a size 105 blade interference screw under the appropriate length with distal interlock. INDICATIONS: Norm Cortez is a 70-year-old very active gentleman who was cleaning the gutters about 2 days ago when he fell off the ladder from a height of about 6 feet, he landed hard on the ground and bounced a few times, he was unable to weightbear. He then presented to [facility] ED where he underwent imaging, it was a slightly unusual fracture pattern. He underwent CT scan. He also had a previous history of prostate cancer for which he has been in remission for a number of years. He has not had a bone scan recently due to possible risk of him having a metastatic disease. A bone scan was done prior to surgery, he was found to have no concerning lesions anywhere about the body. After the discussion, a decision was made to proceed with intramedullary nail of the left hip. Risks and benefits were discussed at length including but not limited to bleeding, infection, damage to nerves, vessels, surrounding structures, wound nonhealing, persistent pain, nonunion, malunion, need for further surgery, risks of anesthesia, risks of DVT. He has elected to proceed with surgery. DESCRIPTION OF PROCEDURE: The patient was greeted in the preoperative area by the attending surgeon. Correct extremity was marked and consent was confirmed. The patient was then brought back to the operating suite. He was placed in the supine position and he was kept on the surgical bed and then underwent spinal anesthesia, which he tolerated without difficulty. The patient then was transferred to the fracture table. His left leg was placed in the traction boot and his right leg in the well-leg ashton, which was flexed and abducted. His arms were placed across his body and a traction was applied with a well- padded perineal post. Once the reduction was obtained, that was confirmed by x- ray guidance, the left leg was prepped and draped beginning with a prescrub of chlorhexidine soap and alcohol wipe and a final prep with ChloraPrep. After appropriate surgical pause indicating side, site of the procedure, administration of antibiotics, a 10 blade was used to make an incision that extended from the tip of the trochanter proximally, the soft tissue was carefully dissected to expose the IT band. The IT band was then incised in line with the femur and the guidewire was then advanced under arthroscopic visualization down the center of the canal after the optimal starting point was assessed. Once this was appropriately placed, the starting reamer was then used to access the canal after which the reamings and any marrow aspirate or soft tissue were then sent for pathology to make sure that there were no concerning findings. Reaming was limited to the proximal portion of the femur as it was capacious, there was not much required. Therefore, the nail was then inserted under arthroscopic visualization. Once it was well seated, the lateral guide arm and jig was assembled and the guidewire was used. It was then placed in the appropriate position of femoral neck, somewhat central and low. This was measured to depth of about 109 mm, therefore a 105 mm blade was chosen. The lateral cortex was opened with the starting drill and the trajectory of the blade was then pre-drilled using the appropriate Synthes drill. The bone quality was quite good. Once this was done, the blade plate was then inserted without difficulty. This was confirmed on the AP and lateral views. Once the appropriate guidewire was placed down the femoral neck, a second guidewire was placed as a derotational guide due to the complexity of this fracture. His fracture did extend into the femoral neck past the basicervical area. Once this was done, the appropriate length was determined, it was found to be 109 mm and a 105 mm blade was chosen. The lateral cortex was then drilled and then the appropriate pre-drilling for the blade was done to a depth of 105 mm. The blade was then inserted with care to monitor under fluoroscopic guidance to make sure that there was no change in alignment or change in the fracture pattern. Once this was placed with good fixation, the nail was locked proximally. The derotation wire was then removed. The static interlocking drill that was then placed by making a percutaneous incision and drilled bicortically. The appropriate length screw with the interlocking bolt was then placed. The wounds were copiously irrigated. The guide arm was removed. Final images were obtained. I found the fracture appropriately reduced and the wounds were closed in layers with 0 Vicryl for the deep fascia, 2-0 Vicryl for subcutaneous skin and latisha for the skin. Sterile dressings were applied. He was then awoken from the anesthesia and transferred to the PACU in stable condition. Post operative plan: He will be touchdown weightbearing for about 1 month. He will be on DVT prophylaxis for about 6 weeks. He will receive 24 hours of postop antibiotics and begin working with therapy tomorrow. We will plan for him to be discharged in the next day or two. [id number]/[facility] #: [id number] [facility]
[2016-10-31] MEDS: oxyCODONE/Acetamin 5/325 MG* TAB PO PRN ×3 (15:12→23:37)
[2016-11-01] MEDS: oxyCODONE/Acetamin 5/325 MG* TAB PO PRN ×5 (03:42→22:00)
[2016-11-01 07:14] LABS: Hematocrit 30 % (42-52); Hemoglobin 10.2 g/dl (14.0-18.0); Mean Corpuscular HGB Conc 34 g/dl (31-36); Mean Corpuscular Hemoglobin 31 pg (27-31); Mean Corpuscular Volume 91 fL (80-94); Mean Platelet Volume 8 um3 (7.4-10.4); Red Blood Count 3.33 10^6/ul (4.0-5.4); Red Cell Distribution Width 13 % (10.5-15); White Blood Count 7.5 10^3/ul (3.5-10.8)
[2016-11-01 07:32] LABS: BUN/Creatinine Ratio 16.3 (8-20); Calcium 8.5 mg/dL (8.6-10.3); EGFR African American 122.6 (>60); EGFR Non-African American 95.3 (>60); Potassium 3.6 mmol/L (3.5-5.0)
[2016-11-01] MEDS: Docusate CAP* 100 MG PO SCH ×2 (08:10→19:10)
[2016-11-01] MEDS: Tamsulosin CAP* 0.4 MG PO SCH (08:11)
[2016-11-01] MEDS: Acetaminophen TAB* 325 MG PO SCH ×3 (08:11→19:11)
[2016-11-01] MEDS: Enoxaparin(*) 40 MG/0.4 ML SYR SUBCUT SCH (08:13)
--- NOTE | 2016-11-01 09:55 | PN ---
Progress Note - Progress Note SOAP: Subjective: [Pt is POD #2 L hip IM nail with biopsy. Pt reports feeling good this morning. States that he only has some slight pain at the top most incision. ] Objective: [General: Pt is alert, awake and oriented. No acute distress. Jovial Mood MSK: LLE: dressing was changed today. Incisions appear good, they are clean, dry and intact. No erythema or swelling around the incisions or latisha. Pt is able to lift thigh off bed slightly. Pt has sensation grossly intact over LLE. Full ROM of ankle. 2+ DP and PT bilaterally. Vital Signs Temp 98.1 F 11/01/16 07:26 Pulse 64 11/01/16 07:26 Resp 16 11/01/16 08:45 BP 115/53 11/01/16 07:26 Pulse Ox 99 11/01/16 08:45 Intake & Output 10/31/16 11/01/16 11/01/16 18:59 06:59 18:59 Intake Total 1719 600 Balance 1719 600 Intake: IV Fluids 239 ABX - CEFAZOLIN 153 NS 86 Oral 1480 600 Other: Estimated Void Medium Medium Medium # Bowel Movements 1 0 Estimated Stool Amount Large # Voids 1 1 1 ] Assessment: POD #2 L hip IM Nail w/ biopsy ] Plan: [Pt will continue with PT/OT today Partial wt bearing Continue with abx DVT ppx w lovenox Dressing changed today. ] <Efraín Vitale - Last Filed: 11/01/16 09:48> - Progress Note SOAP: Attending addendum Agree with above. Pt comfortable. Hoped for d/c today but plans for tomorrow. NAD. AAOx3. dressing in place. calf soft, nontender. brisk cap refill. able to dorsiflex/plantarflex ankle. SILT POD#2 from IMN of left hip partial weight bearing. PT/OT lovenox d/c tomorrow <Jeremie Virgen - Last Filed: 11/01/16 16:00>
--- NOTE | 2016-11-01 14:45 | PN ---
Subjective Date of Service: 11/01/16 Objective Active Medications: Acetaminophen (Tylenol Tab*) 975 mg PO TID PRN Acetaminophen (Tylenol Tab*) 975 mg PO TID [facility] Docusate Sodium (Colace Cap*) 100 mg PO BID [facility] Enoxaparin Sodium (Lovenox(*)) 40 mg SUBCUT DAILY [facility] Hydralazine HCl (Apresoline Iv*) 5 mg IV Q6H PRN Morphine Sulfate (Morphine Inj (Syringe)*) 2 mg IV Q3H PRN Nalbuphine HCl (Nubain*) 5 mg IV Q6H PRN Oxycodone/Acetaminophen (Percocet 5/325 Tab*) 1 tab PO Q4H PRN Tamsulosin HCl (Flomax Cap*) 0.4 mg PO DAILY [facility] Vital Signs 10/31/16 10/31/16 10/31/16 15:12 15:59 16:00 Temperature 98.7 F Pulse Rate 74 Respiratory 18 16 Rate Blood Pressure 158/62 (mmHg) O2 Sat by Pulse 100 100 Oximetry 10/31/16 10/31/16 10/31/16 17:12 19:22 19:31 Temperature Pulse Rate Respiratory 18 16 16 Rate Blood Pressure (mmHg) O2 Sat by Pulse Oximetry 10/31/16 10/31/16 10/31/16 19:34 21:22 23:31 Temperature 99.3 F 98.6 F Pulse Rate 81 71 Respiratory 20 16 16 Rate Blood Pressure 150/63 126/47 (mmHg) O2 Sat by Pulse 99 98 Oximetry 10/31/16 11/01/16 11/01/16 23:37 01:37 03:41 Temperature 97.4 F Pulse Rate 62 Respiratory 16 16 16 Rate Blood Pressure 148/63 (mmHg) O2 Sat by Pulse 100 Oximetry 11/01/16 11/01/16 11/01/16 03:42 05:42 07:26 Temperature 98.1 F Pulse Rate 64 Respiratory 18 16 20 Rate Blood Pressure 115/53 (mmHg) O2 Sat by Pulse 99 Oximetry 11/01/16 11/01/16 11/01/16 08:11 08:45 10:11 Temperature Pulse Rate Respiratory 16 16 16 Rate Blood Pressure (mmHg) O2 Sat by Pulse 99 Oximetry 11/01/16 11/01/16 11:36 12:29 Temperature 97.7 F Pulse Rate 67 Respiratory 16 16 Rate Blood Pressure 127/64 (mmHg) O2 Sat by Pulse 100 Oximetry Oxygen Devices in Use Now: None Result Diagrams: 11/01/16 06:49 11/01/16 06:49 Assess/Plan/Problems-Billing Assessment: Mr. Cortez is a 70 yo male with a PMH of prostate cancer who was admitted on 10/28/16 with a left hip fracture. - Patient Problems (1) Closed left hip fracture Comment: POD # 2, management per ortho. Pain meds prn, bowel regimen. PT/OT. Monitor H/H. (2) Prostate cancer Comment: S/P radiation. Continue flomax. (3) Hypertension Comment: SBP 110-130s. High blood pressure earlier likely due to pain. (4) DVT prophylaxis Comment: Heparin SQ. (5) Full code status Status and Disposition: Inpatient. Doing very well with physical therapy, anticipate discharge to home tomorrow.
--- NOTE | 2016-11-01 15:01 | PN ---
Subjective Date of Service: 11/01/16 Interval History: Mr. Cortez denies complaint. Objective Active Medications: Acetaminophen (Tylenol Tab*) 975 mg PO TID PRN PRN Reason: PAIN Last Admin: 10/29/16 07:51 Dose: 975 mg Acetaminophen (Tylenol Tab*) 975 mg PO TID [facility] Last Admin: 11/01/16 14:40 Dose: 975 mg Docusate Sodium (Colace Cap*) 100 mg PO BID [facility] Last Admin: 11/01/16 08:10 Dose: 100 mg Enoxaparin Sodium (Lovenox(*)) 40 mg SUBCUT DAILY [facility] Stop: 12/12/16 09:00 Last Admin: 11/01/16 08:13 Dose: 40 mg Hydralazine HCl (Apresoline Iv*) 5 mg IV Q6H PRN PRN Reason: SYSTOLIC BP GREATER THAN: Morphine Sulfate (Morphine Inj (Syringe)*) 2 mg IV Q3H PRN PRN Reason: PAIN - MILD Nalbuphine HCl (Nubain*) 5 mg IV Q6H PRN PRN Reason: PAIN SCALE 1-5 Last Admin: 10/30/16 22:11 Dose: 5 mg Oxycodone/Acetaminophen (Percocet 5/325 Tab*) 1 tab PO Q4H PRN PRN Reason: PAIN Last Admin: 11/01/16 12:29 Dose: 1 tab Tamsulosin HCl (Flomax Cap*) 0.4 mg PO DAILY [facility] Last Admin: 11/01/16 08:11 Dose: 0.4 mg Vital Signs 10/31/16 10/31/16 10/31/16 15:12 15:59 16:00 Temperature 98.7 F Pulse Rate 74 Respiratory 18 16 Rate Blood Pressure 158/62 (mmHg) O2 Sat by Pulse 100 100 Oximetry 10/31/16 10/31/16 10/31/16 17:12 19:22 19:31 Temperature Pulse Rate Respiratory 18 16 16 Rate Blood Pressure (mmHg) O2 Sat by Pulse Oximetry 10/31/16 10/31/16 10/31/16 19:34 21:22 23:31 Temperature 99.3 F 98.6 F Pulse Rate 81 71 Respiratory 20 16 16 Rate Blood Pressure 150/63 126/47 (mmHg) O2 Sat by Pulse 99 98 Oximetry 12/11/01/16 11/01/16 23:37 01:37 03:41 Temperature 97.4 F Pulse Rate 62 Respiratory 16 16 16 Rate Blood Pressure 148/63 (mmHg) O2 Sat by Pulse 100 Oximetry 11/01/16 11/01/16 11/01/16 03:42 05:42 07:26 Temperature 98.1 F Pulse Rate 64 Respiratory 18 16 20 Rate Blood Pressure 115/53 (mmHg) O2 Sat by Pulse 99 Oximetry 11/01/16 11/01/16 11/01/16 08:11 08:45 10:11 Temperature Pulse Rate Respiratory 16 16 16 Rate Blood Pressure (mmHg) O2 Sat by Pulse 99 Oximetry 11/01/16 11/01/16 11:36 12:29 Temperature 97.7 F Pulse Rate 67 Respiratory 16 16 Rate Blood Pressure 127/64 (mmHg) O2 Sat by Pulse 100 Oximetry Oxygen Devices in Use Now: None Appearance: Male sitting up in chair in NAD Respiratory: Symmetrical Chest Expansion and Respiratory Effort, Clear to Auscultation Cardiovascular: NL Sounds; No Murmurs; No JVD, No Edema Abdominal: NL Sounds; No Tenderness; No Distention Extremities: No Edema Skin: No Rash or Ulcers Neurological: Alert and Oriented x 3, NL Muscle Strength and Tone Nutrition: Taking PO's Result Diagrams: 11/01/16 06:49 11/01/16 06:49 Assess/Plan/Problems-Billing Assessment: Mr. Cortez is a 70 yo male with a PMH of prostate cancer who was admitted on 10/28/16 with a left hip fracture. - Patient Problems (1) Closed left hip fracture Comment: POD # 2, management per ortho. Pain meds prn, bowel regimen. PT/OT. Monitor H/H. (2) Prostate cancer Comment: S/P radiation. Continue flomax. (3) Hypertension Comment: SBP 110-130s. High blood pressure earlier likely due to pain. (4) DVT prophylaxis Comment: Heparin SQ. (5) Full code status Status and Disposition: Inpatient. Doing very well with physical therapy, anticipate discharge to home tomorrow.
[2016-11-02] MEDS: oxyCODONE/Acetamin 5/325 MG* TAB PO PRN (04:38)
[2016-11-02 07:53] VITALS: BP 133/62
--- NOTE | 2016-11-02 08:14 | PN ---
Progress Note - Progress Note Note: POD#3 from IMN of left hip. Comfortable. Denies fevers/chill. No SOB. Anticipating discharge today. Temp Pulse Resp BP Pulse Ox 98.3 F 66 16 133/62 99 11/02/16 07:15 11/02/16 07:15 11/02/16 07:15 11/02/16 07:15 11/02/16 07:[address] sitting up in bed with computer. able to DF/PF ankle. flex/ext toes. brisk cap refill. calf soft, nontender A/P s/p L hip IMN with reamings sent to pathology for IT hip fx with extension into neck PWB: PT/OT lovenox analgesia pathology pending plan for d/c to SNF today if able. will sign off for now. pt needs to see me back in 10-14 days [id number]
[2016-11-02] MEDS: Tamsulosin CAP* 0.4 MG PO SCH (08:19)
[2016-11-02] MEDS: Enoxaparin(*) 40 MG/0.4 ML SYR SUBCUT SCH (08:19)
[2016-11-02] MEDS: Docusate CAP* 100 MG PO SCH (08:19)
[2016-11-02] MEDS: Acetaminophen TAB* 325 MG PO SCH (08:22)
--- NOTE | 2016-11-02 08:51 | PN ---
Subjective Date of Service: 11/02/16 Interval History: Mr. Cortez states that he is feeling very well and is eager for discharge to home. He reports ambulating without difficulty. His family have arranged to have his bedroom on the first floor of his home, the bathroom is already on the first floor. Objective Active Medications: Acetaminophen (Tylenol Tab*) 975 mg PO TID PRN Acetaminophen (Tylenol Tab*) 975 mg PO TID [facility] Docusate Sodium (Colace Cap*) 100 mg PO BID [facility] Enoxaparin Sodium (Lovenox(*)) 40 mg SUBCUT DAILY [facility] Hydralazine HCl (Apresoline Iv*) 5 mg IV Q6H PRN Morphine Sulfate (Morphine Inj (Syringe)*) 2 mg IV Q3H PRN Nalbuphine HCl (Nubain*) 5 mg IV Q6H PRN Oxycodone/Acetaminophen (Percocet 5/325 Tab*) 1 tab PO Q4H PRN Tamsulosin HCl (Flomax Cap*) 0.4 mg PO DAILY [facility] Vital Signs 11/01/16 11/01/16 11/01/16 10:11 11:36 12:29 Temperature 97.7 F Pulse Rate 67 Respiratory 16 16 16 Rate Blood Pressure 127/64 (mmHg) O2 Sat by Pulse 100 Oximetry 11/01/16 11/01/16 11/01/16 14:29 15:25 16:00 Temperature 97.9 F Pulse Rate 62 Respiratory 18 16 Rate Blood Pressure 120/62 (mmHg) O2 Sat by Pulse 100 100 Oximetry 11/01/16 11/01/16 11/01/16 16:46 18:46 19:10 Temperature Pulse Rate Respiratory 20 18 16 Rate Blood Pressure (mmHg) O2 Sat by Pulse Oximetry 11/01/16 11/01/16 11/01/16 19:54 22:00 23:37 Temperature 97.9 F 99.2 F Pulse Rate 64 76 Respiratory 16 18 18 Rate Blood Pressure 128/63 145/67 (mmHg) O2 Sat by Pulse 100 98 Oximetry 11/01/16 11/02/16 11/02/16 23:47 00:00 02:30 Temperature Pulse Rate Respiratory 18 Rate Blood Pressure (mmHg) O2 Sat by Pulse 100 100 Oximetry 11/02/16 11/02/16 11/02/16 04:30 04:38 06:23 Temperature 98.9 F Pulse Rate 73 Respiratory 18 18 16 Rate Blood Pressure 132/59 (mmHg) O2 Sat by Pulse 99 Oximetry 11/02/16 11/02/16 07:15 08:00 Temperature 98.3 F Pulse Rate 66 Respiratory 16 16 Rate Blood Pressure 133/62 (mmHg) O2 Sat by Pulse 99 99 Oximetry Oxygen Devices in Use Now: None Appearance: Male lying in bed in NAD Respiratory: Symmetrical Chest Expansion and Respiratory Effort, Clear to Auscultation Cardiovascular: NL Sounds; No Murmurs; No JVD, No Edema Abdominal: NL Sounds; No Tenderness; No Distention Extremities: No Edema Skin: No Rash or Ulcers Neurological: Alert and Oriented x 3, NL Muscle Strength and Tone Nutrition: Taking PO's Result Diagrams: 11/01/16 06:49 11/01/16 06:49 Assess/Plan/Problems-Billing Assessment: Mr. Cortez is a 70 yo male with a PMH of prostate cancer who was admitted on 10/28/16 with a left hip fracture. - Patient Problems (1) Closed left hip fracture Comment: POD # 3, management per ortho. Pain meds prn, bowel regimen. PT/OT. Monitor H/H. (2) Prostate cancer Comment: S/P radiation. Continue flomax. (3) Hypertension Comment: SBP 110-130s. High blood pressure earlier likely due to pain. (4) DVT prophylaxis Comment: Heparin SQ. (5) Full code status Status and Disposition: Inpatient. Discharge to home.
--- NOTE | 2016-11-03 07:55 | DS ---
DISCHARGE SUMMARY: DATE OF ADMISSION: 10/28/16 DATE OF DISCHARGE: 11/02/16 PRIMARY CARE PHYSICIAN: Dr. Beavesr. ATTENDING PHYSICIAN: Dr. Harris Omalley* (dictation provided by Mickie Page NP ). PRIMARY DIAGNOSIS: Fall with left femoral fracture, status post open reduction internal fixation. SECONDARY DIAGNOSIS: Prostate cancer 2003 status post radiation and implantation of beads. MEDICATIONS AT THE TIME OF DISCHARGE: 1. Flomax 0.4 mg p.o. daily. 2. Lovenox 40 mg subcutaneously daily. 3. Oxycodone/acetaminophen 5/325 mg 1 tablet p.o. q.4 hours p.r.n. pain. HOSPITAL COURSE: Mr. Cortez is a 70-year-old male who presented to the emergency room on 10/28/16 after a fall from a ladder. Please see dictated H and P from Dr. Jamar Rahman for complete details. In brief, the patient fell and he sustained a comminuted and somewhat displaced fracture of the proximal left femur. Remainder of his radiology showed no fracture or injury. Mr. Cortez was seen in consultation by Dr. Virgen from Orthopedic Surgery and he was taken to the OR on 10/30/16 for left hip intramedullary nail. Mr. Cortez has been doing excellent since surgery. He has been ambulating well and progressing well with physical therapy. He was living previously independently with his . His has moved bedroom down to the first floor for easy mobility and there is also bathroom available on that floor. Mr. Cortez was medically stable for discharge to home today with extra support from his family. His hemoglobin and hematocrit are stable. Pain is well controlled. He will be following up with Dr. Virgen in 10-12 days. TIME SPENT: Approximately 60 minutes was spent in the discharge of this patient ; more than half the time was spent with the him at the bedside reviewing the events leading up to this hospitalization and during this hospitalization, performing the physical examination, and reviewing the my plan of care. MICKIE PAGE NP CC: Dr. Beavers* [id number]/[facility] #: [id number] [facility]
--- NOTE | 2016-11-04 14:10 | ED ---
Napoleon Teixeira Aidan, scribed for Ramirez Carrero MD on 10/28/16 at 2014 . Lower Extremity - HPI Summary HPI Summary: 73 y/o male presents to the ED with a complaint of acute, constant, moderate(4/ 10) left hip and left elbow pain that resulted from him falling off of a 6ft ladder and landing on his left hip and elbow. In the supine position, he cannot lift his left leg. Pt denies hitting his head or any LOC. 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) Severity Initially: Moderate Severity Currently: Moderate Pain Intensity: 4 Pain Scale Used: 0-10 Numeric Timing: Constant, Lasting Hours - just over an hour Location: Is Discrete @ - left hip and left elbow Character Of Pain: Sharp Associated Signs And Symptoms: Positive: Negative Aggravating Factor(s): Ambulation - Pt cannot lift his left leg in the supine position - Risk Factors Gout Risk Factors: Age Over 40, Male DVT Risk Factors: Smoking - former Septic Arthritis Risk Factor: Negative - Allergies/Home Medications Allergies/Adverse Reactions: Allergies Allergy/AdvReac Type Severity Reaction Status Date / Time No Known Allergies Allergy Verified 10/30/16 13:25 Home Medications: Home Medications Tamsulosin CAP* [Flomax CAP*] 0.4 mg PO DAILY 10/28/16 [History Confirmed ] PMH/Surg Hx/FS Hx/Imm Hx Infectious Disease History: No Infectious Disease History: Reports: Traveled Outside the [place] in Last 30 Days - [place] - Family History Known Family History: Positive: Hypertension - Social History Occupation: Employed Full-time Lives: With Family Alcohol Use: Occasionally Substance Use Type: Reports: None Smoking Status (MU): Former Smoker Review of Systems Constitutional: Negative Eyes: Negative ENT: Negative Cardiovascular: Negative Respiratory: Negative Gastrointestinal: Negative Genitourinary: Negative Positive: Arthralgia - left hip and left elbow pain Skin: Negative Neurological: Negative Psychological: Normal All Other Systems Reviewed And Are Negative: Yes Physical Exam - Summary Physical Exam Summary: Trauma HEENT: Head normocephalic, atraumatic. Pupils are equal, round, and reactive to light. Extraocular muscles intact. No hyphema. There is no septal hematoma. No jaw tenderness. No malalignment of teeth. No hemotympanum. NECK: No midline posterior cervical tenderness. CHEST: No respiratory distress, no tenderness. No crepitus. No flail chest. Lungs are clear to auscultation. CARDIAC: Regular rate and rhythm. SPINE: No tenderness. No step-off. ABDOMEN: Bowel sounds positive. Soft, non-tender. No seatbelt sign. PELVIS: Stable, EXTREMITIES No deformity. Skin intact, non-tender. No significant edema. 2+ pulses in all extremities. 5/5 flexor and extensor strength. NEUROLOGICAL: Cranial nerves II-XII intact, 5/5 flexor and extensor strength in bilateral upper and lower extremities, 2+ DTR's throughout, sensation intact to light touch, negative Babinski. tender in proximal femur and left hip, neurovascularly intact Triage Information Reviewed: Yes Vital Signs On Initial Exam: Initial Vitals Temp Pulse Resp BP Pulse Ox 98.3 F 74 17 188/87 98 10/28/16 18:45 10/28/16 18:45 10/28/16 18:45 10/28/16 18:45 10/28/16 18:45 Vital Signs Reviewed: Yes - [place] Coma Scale Coma Scale Total: 15 Diagnostics - Vital Signs Vital Signs Temp Pulse Resp BP Pulse Ox 10/28/16 19:03 69 96 10/28/16 19:00 149/60 10/28/16 18:58 75 98 10/28/16 18:45 98.3 F 74 17 188/87 98 - Laboratory Lab Results: Lab Results 10/28/16 10/28/16 10/28/16 Range/Units 20:22 20:22 20:22 WBC 14.2 H (3.5-10.8) 10^3/ul RBC 4.46 (4.0-5.4) 10^6/ul Hgb 13.4 L (14.0-18.0) g/dl Hct 40 L (42-52) % MCV 90 (80-94) fL MCH 30 (27-31) pg MCHC 33 (31-36) g/dl RDW 13 (10.5-15) % Plt Count 206 (150-450) 10^3/ul MPV 8 (7.4-10.4) um3 Neut % (Auto) 87.2 H (38-83) % Lymph % (Auto) 6.0 L (25-47) % Coke % (Auto) 6.3 (1-9) % Eos % (Auto) 0.1 (0-6) % Baso % (Auto) 0.4 (0-2) % Absolute Neuts (auto) 12.4 H (1.5-7.7) 10^3/ul Absolute Lymphs (auto) 0.8 L (1.0-4.8) 10^3/ul Absolute Monos (auto) 0.9 H (0-0.8) 10^3/ul Absolute Eos (auto) 0 (0-0.6) 10^3/ul Absolute Basos (auto) 0.1 (0-0.2) 10^3/ul Absolute Nucleated RBC 0.01 10^3/ul Nucleated RBC % 0 INR (Anticoag Therapy) 0.98 (0.89-1.11) APTT 28.3 (26.0-36.3) seconds Sodium 134 (133-145) mmol/L Potassium 3.8 (3.5-5.0) mmol/L Chloride 101 (101-111) mmol/L Carbon Dioxide 27 (22-32) mmol/L Anion Gap 6 (2-11) mmol/L BUN 22 (6-24) mg/dL Creatinine 0.81 (0.67-1.17) mg/dL Est GFR ( Amer) 120.8 (>60) Est GFR (Non-Af Amer) 93.9 (>60) BUN/Creatinine Ratio 27.2 H (8-20) Glucose 113 H (70-100) mg/dL Lactic Acid (0.5-2.0) mmol/L Calcium 9.4 (8.6-10.3) mg/dL Total Bilirubin 0.40 (0.2-1.0) mg/dL AST 23 (13-39) U/L ALT 14 (7-52) U/L Alkaline Phosphatase 61 (34-104) U/L Total Protein 7.2 (6.4-8.9) g/dL Albumin 4.2 (3.2-5.2) g/dL Globulin 3.0 (2-4) g/dL Albumin/Globulin Ratio 1.4 (1-3) 10/28/ Range/Units 20:22 WBC (3.5-10.8) 10^3/ul RBC (4.0-5.4) 10^6/ul Hgb (14.0-18.0) g/dl Hct (42-52) % MCV (80-94) fL MCH (27-31) pg MCHC (31-36) g/dl RDW (10.5-15) % Plt Count (150-450) 10^3/ul MPV (7.4-10.4) um3 Neut % (Auto) (38-83) % Lymph % (Auto) (25-47) % Coke % (Auto) (1-9) % Eos % (Auto) (0-6) % Baso % (Auto) (0-2) % Absolute Neuts (auto) (1.5-7.7) 10^3/ul Absolute Lymphs (auto) (1.0-4.8) 10^3/ul Absolute Monos (auto) (0-0.8) 10^3/ul Absolute Eos (auto) (0-0.6) 10^3/ul Absolute Basos (auto) (0-0.2) 10^3/ul Absolute Nucleated RBC 10^3/ul Nucleated RBC % INR (Anticoag Therapy) (0.89-1.11) APTT (26.0-36.3) seconds Sodium (133-145) mmol/L Potassium (3.5-5.0) mmol/L Chloride (101-111) mmol/L Carbon Dioxide (22-32) mmol/L Anion Gap (2-11) mmol/L BUN (6-24) mg/dL Creatinine (0.67-1.17) mg/dL Est GFR ( Amer) (>60) Est GFR (Non-Af Amer) (>60) BUN/Creatinine Ratio (8-20) Glucose (70-100) mg/dL Lactic Acid 1.4 (0.5-2.0) mmol/L Calcium (8.6-10.3) mg/dL Total Bilirubin (0.2-1.0) mg/dL AST (13-39) U/L ALT (7-52) U/L Alkaline Phosphatase (34-104) U/L Total Protein (6.4-8.9) g/dL Albumin (3.2-5.2) g/dL Globulin (2-4) g/dL Albumin/Globulin Ratio (1-3) Result Diagrams: 11/01/16 06:49 11/01/16 06:49 Lab Statement: Any lab studies that have been ordered have been reviewed, and results considered in the medical decision making process. - Radiology CHEST XR Xray Interpretation: Positive (See Comments) - IMPRESSION: SMALL RADIOPAQUE FOREIGN BODIES OVERLYING THE LOWER CHEST. IT IS UNCLEAR IF THIS IS ARTIFACT OVERLYING THE PATIENT OR WITHIN THE CHEST. OTHERWISE, NO ACTIVE CARDIOPULMONARY DISEASE Radiology Interpretation Completed By: Radiologist PELVIS XR Xray Interpretation: Positive (See Comments) - IMPRESSION: AGAIN NOTED IS A FRACTURE OF THE PROXIMAL LEFT FEMUR Radiology Interpretation Completed By: Radiologist FEMUS XR Xray Interpretation: Positive (See Comments) - IMPRESSION: FRACTURE OF THE PROXIMAL LEFT FEMUR Radiology Interpretation Completed By: Radiologist - CT LOWER EXTREMITY CT CT Interpretation: Positive (See Comments) - IMPRESSION: AGAIN NOTED IS A COMMINUTED AND SOMEWHAT DISPLACED FRACTURE OF THE PROXIMAL LEFT FEMUR CT Interpretation Completed By: Radiologist - EKG EKG 1931 Cardiac Rate: NL - 74 EKG Rhythm: Sinus Rhythm EKG Interpretation: NSR, NO ACUTE ISCHEMIA Lower Extremity Course/Dx - Diagnoses Provider Diagnoses: left hip fracture - Physician Notifications Discussed Care of Patient With: Dr. Virgen (ortho) Time Discussed With Above Provider: 20:14 - Dr. Virgen requested a CT of the lower extremity because the Pt has a Hx of prostate CA Discharge - Discharge Plan Condition: Stable Disposition: ADMITTED TO [facility] documentation as recorded by the Napoleon may Aidan accurately reflects the service I personally performed and the decisions made by , Ramirez Carrero MD.
== END 2016-11-02 11:30 | disposition home or self-care (01) | DRG 308 ==
LOC: ED 18:36 → SSU 23:24
PROVIDERS: ADMIT Internal Medicine; ATTEND Internal Medicine
PROC: 0QS7XZZ Reposition Left Upper Femur, External Approach (ICD-10-PCS; 2016-10-30)
PROC: 0QH706Z Insertion of Intramedullary Internal Fixation Device into Left Upper Femur, Open Approach (ICD-10-PCS; principal; 2016-10-30 16:00)
DX: S72.142A Displaced intertrochanteric fracture of left femur, initial encounter for closed fracture (principal); I10 Essential (primary) hypertension; W11.XXXA Fall on and from ladder, initial encounter; Y93.H9 Activity, other involving exterior property and land maintenance, building and construction; Y92.017 Garden or yard in single-family (private) house as the place of occurrence of the external cause; Z85.46 Personal history of malignant neoplasm of prostate; Z92.3 Personal history of irradiation; Z87.891 Personal history of nicotine dependence
CPT/HCPCS: 36415; 71010; 72170; 76000; 78306; 80048; 80053; 83605; 84153; 85025; 85610; 85730; 88305; 88341; 88342; 93005; 94760; A9270-GY; A9503; C1713; C1776; G0103; J0690; J1100; J1644; J1650; J1885; J2001; J2250; J2300; J2405; J2704; J3010

== ENCOUNTER 2017-11-05 11:50 | Observation (INO) | payer BC, MEDICARE ==
[2017-11-05] MEDS ORDERED: Atorvastatin* 80 MG TAB PO ONE (12:24)
[2017-11-05] MEDS ORDERED: Metoprolol Tartrate TAB* 25 MG PO ONE (12:24)
[2017-11-05] MEDS ORDERED: Aspirin Low Dose CHEW TAB* 81 MG PO ONE (12:26)
--- NOTE | 2017-11-05 12:35 | ED ---
Liang Teixeira Stephanie, scribed for Chris Sen MD on 11/05/17 at 1203 . HPI Cardiac - HPI Summary HPI Summary: The pt is a 71 y/o M presenting to the ED with c/o EKG changes during stress test per EMS. The pt has no symptoms and reports feeling fine. The pt denies CP or fever. - History of Current Complaint Stated Complaint: EKG CHANGES, STRESS TEST FAIL Time Seen by Provider: 11/05/17 11:52 Hx Obtained From: Patient, EMS Pain Intensity: 0 Pain Scale Used: 0-10 Numeric Aggravating Factor(s): Exertion Alleviating Factor(s): Nothing Associated Signs and Symptoms: Positive: Negative - Additional Pertinent History Primary Care Physician: [facility] - Allergy/Home Medications Allergies/Adverse Reactions: Allergies Allergy/AdvReac Type Severity Reaction Status Date / Time Morphine Allergy Mild Itching Verified 11/05/17 12:04 PMH/Surg Hx/FS Hx/Imm Hx History: Reports: Hx Kidney Infection - 45 years ago per pt - Cancer History Cancer Type, Location and Year: PROSTATE, IN REMISSION - Surgical History Surgery Procedure, Year, and Place: radiation and implantation of beads for prostate cancer - Family History Known Family History: Positive: Hypertension - Social History Occupation: Employed Full-time Lives: With Family Alcohol Use: Occasionally Substance Use Type: Reports: None Hx Tobacco Use: Yes Smoking Status (MU): Former Smoker Review of Systems Negative: Fever Negative: Chest Pain All Other Systems Reviewed And Are Negative: Yes Physical Exam - Summary Physical Exam Summary: Appearance: The patient is well-nourished in no acute distress and in no acute pain. Skin: The skin is warm and dry and skin color reflects adequate perfusion. HEENT: The head is normocephalic and atraumatic. The pupils are equal and reactive. The conjunctivae are clear and without drainage. Nares are patent and without drainage. Mouth reveals moist mucous membranes and the throat is without erythema and exudate. The external ears are intact. The ear canals are patent and without drainage. The tympanic membranes are intact. Neck: the neck is supple with full range of motion and non-tender. There are no carotid bruits. There is no neck vein distension. Respiratory: Chest is non-tender. Lungs are clear to auscultation and breath sounds are symmetrical and equal. Cardiovascular: Heart is regular rate and rhythm. There is no murmur or rub auscultated. There is no peripheral edema and pulses are symmetrical and equal. Abdomen: The abdomen is soft and non-tender. There are normal bowel sounds heard in all four quadrants and there is no organomegaly palpated. Musculoskeletal: There is no back tenderness noted. Extremities are non-tender with full range of motion. There is good capillary refill. There is no peripheral edema or calf tenderness elicited. Neurological: Patient is alert and oriented to person, place and time. The patient has symmetrical motor strength in all four extremities. Cranial nerves are grossly intact. Deep tendon reflexes are symmetrical and equal in all four extremities. Psychiatric: The patient has an appropriate affect and does not exhibit any anxiety or depression. Triage Information Reviewed: Yes Vital Signs On Initial Exam: Initial Vitals Temp Pulse Resp BP Pulse Ox 97.9 F 72 20 169/96 100 11/05/17 11:58 11/05/17 11:58 11/05/17 11:58 11/05/17 11:58 11/05/17 11:58 Vital Signs Reviewed: Yes Diagnostics - Vital Signs Vital Signs Temp Pulse Resp BP Pulse Ox 11/05/17 12:06 96 11/05/17 12:05 100 11/05/17 12:00 73 19 169/96 99 11/05/17 11:59 72 14 99 11/05/17 11:58 97.9 F 72 20 169/96 100 - Laboratory Lab Statement: Any lab studies that have been ordered have been reviewed, and results considered in the medical decision making process. - EKG 12:07 EKG Rhythm: Sinus Rhythm - 70 BPM EKG Interpretation: Q waves of uncertain etiology in leads 1, 2, 3. Disposition - Course Course Of Treatment: Mr. Cortez was asymptomatic here after failing his stress test spectacularily. He is going to be admitted to the hospitalist service and get cathed later today. - Diagnoses Provider Diagnoses: CAD (coronary artery disease), Abnormal stress electrocardiogram test - Physician Notifications Discussed Care Of Patient With: Miguel Munson Time Discussed With Above Provider: 12:23 Instructed by Provider To: Admit As Inpatient - [employer] Dr. Munson saw the patient and recommended admission into the hospital today. Discharge - Discharge Plan Condition: Stable Disposition: ADMITTED TO [facility] Referrals: Gamaliel Beavers MD [Primary Care Provider] - The documentation as recorded by the Liang may Stephanie accurately reflects the service I personally performed and the decisions made by me, Chris Sen MD.
--- NOTE | 2017-11-05 12:36 | CONSULT ---
Subjective Date of Service: 11/05/17 Interval History: Date of admission and consult: 11/05/2017 PMD: Dr. 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 He had an episode of syncope while working on a paper in September. He denies any rest dyspnea or chest discomfort, palpitations or edema. He states his cholesterol is high, smoked more than 50 years ago. He had an exercise stress MPI today that was a high risk study including drop in BP from 136/90 to 116/60 with exercise and large territory of severe intensity reversible ischemia (mild fixed infarct component) in the proximal LAD vs. left main distribution. He is currently hemodynamically stable without any CP, dyspnea, no arrhythmias on telemetry or CHF on examination. He denies any known dye or shellfish allergies , kidney disease (other than prior infection), bleeding episodes of blood transfusion allergies: morphine (rash pmhx: prior prostate cancer s/p radiation and bed implantaton left hip surgery afer fall from ladder 10/2016 surgical hx: sh: , occasional etoh, remote tobacco use was planning trip to [place] on Thursday (advised to cancel) fh: brother lung cancer Medications Active Medications: Aspirin (Aspirin Low Dose Tab*) 324 mg PO ED ONCE ONE Stop: 11/05/17 12:27 Atorvastatin Calcium (Lipitor*) 80 mg PO ONCE ONE Stop: 11/05/17 12:25 Metoprolol Tartrate (Lopressor Tab*) 25 mg PO ONCE ONE Stop: 11/05/17 12:25 Home Medications: Tamsulosin CAP* [Flomax CAP*] 0.4 mg PO DAILY 10/28/16 [History Confirmed ] x] Review of Systems - Measurements Intake and Output: Intake and Output Last 24 Hours 11/03/17 11/04/17 11/05/17 11/06/17 06:59 06:59 06:59 06:59 Weight 180 lb - Review of Systems Constitutional Symptoms: Negative: Weight Gain, Weight Loss, Weakness, Fatigue, Fever Dermatology: Negative: Rash, Skin Lesions, Skin Lumps HEENT: Negative: Change in Hearing, Vertigo, Dental Problems, Tinnitus Eyes: Negative: Change in Vision, Double Vision Thyroid: Negative: Cold Intolerance, Heat Intolerance, Sweatiness, Tremor, Constipation, Palpitations, Weight Loss, Weight Gain Pulmonary: Positive: Shortness of Breath, Exercise Intolerance Negative: Cough, Sputum, Hemoptysis, Wheezing, Respiratory Distress, COPD, Asthma, Home Oxygen Cardiology: Positive: Chest Pain, Shortness of Breath, Syncope Negative: Palpitations, Swelling of Ankles, Peripheral Vascular Dis, Edema, Claudication, Paroxysmal Nocturnal Dyspnea, Orthopnea Gastroenterology: Negative: Abdominal Pain, Nausea, Vomiting, Anorexia, Indigestion, Difficulty Swallowing, Heartburn, Constipation, Diarrhea, Blood in Stools, Change in Bowel Habits, Melena Genital - Urinary: Negative: Dysuria, Nocturia Genitourinay - Female: Negative: Vaginal Discharge, Menopause Musculoskeletal: Negative: Joint Pain, Joint Stiffness, Arthritis, Osteoporosis, Low Back Pain Endocrinology: Negative: Thyroid Problems, Adrenal Problems, Obesity, Diabetes, Hyperglycemia, Hypoglycemia, Hirsutism, Polydipsia, Polyuria Hematologic/Lymphatic: Negative: Anemia, Easy Brusing, Hx Leukemia, Hx Lymphoma, Use of Anticoagulant, Use of Antiplatelet Drugs Neurology: Negative: Headaches, Migraines, Change in Vision, Diplopia, Dizziness, Change in Balancing, Change in Coordination, Change in Memory, Change in Speech , Change in Sphincter Function, Change in Walking, Numbness\Paresthesiae, Unexplained Weakness, Hx of Stroke\TIA, Hx Seizures Psychiatry: Negative: Depression, Anxiety, Depressed Mood, Adhedonia, Unusual Anxiety, Eating Disorders Allergic/Immunologic: Negative: Hx Anaphylaxis, Hx Angioedema, Hx Environmental Allergies, Hx Seasonal Allergies, Hx HIV Review of Systems Statement: All other review of systems negative, unless stated above. Objective Vital Signs: Temp Pulse Resp BP Pulse Ox 97.9 F 73 19 169/96 96 11/05/17 11:58 11/05/17 12:00 11/05/17 12:00 11/05/17 12:00 11/05/17 12:06 Oxygen Devices in Use Now: None Appearance: nad, pleasant Ears/Nose/Mouth/Throat: Clear Oropharnyx, Mucous Membranes Moist Neck: NL Appearance and Movements; NL JVP, Trachea Midline Respiratory: Symmetrical Chest Expansion and Respiratory Effort, Clear to Auscultation Cardiovascular: NL Sounds; No Murmurs; No JVD, RRR, No Edema Abdominal: NL Sounds; No Tenderness; No Distention Extremities: No Edema Skin: No Rash or Ulcers Neurological: Alert and Oriented x 3 Laboratory Results: 11/05/17 12:05 11/05/17 12:05 INR (Anticoag Therapy) 0.93 (0.77-1.02) 11/05/17 12:05 APTT 30.7 seconds (26.0-36.3) 11/05/17 12:05 Total Bilirubin 0.50 mg/dL (0.2-1.0) 11/05/17 12:05 AST 23 U/L (13-39) 11/05/17 12:05 ALT 13 U/L (7-52) 11/05/17 12:05 Alkaline Phosphatase 73 U/L (34-104) 11/05/17 12:05 CK-MB (CK-2) 6.4 ng/mL (0.6-6.3) H 11/05/17 12:05 B-Natriuretic Peptide 119 pg/mL (-100) H 11/05/17 12:05 Total Protein 7.1 g/dL (6.4-8.9) 11/05/17 12:05 Albumin 4.2 g/dL (3.2-5.2) 11/05/17 12:05 Globulin 2.9 g/dL (2-4) 11/05/17 12:05 Albumin/Globulin Ratio 1.4 (1-3) 11/05/17 12:05 11/05/17 12:05 Troponin I 0.01 Diagnostic Imaging: echo 10/30/2017: MIld LVH, LVEF 45% iwth minor segmental variation LA mild dilated Normal RV size and function Moderate mitral regurgitation, mechanism not well appreciated Mild pulmonary HTN EKG Data: EKG 11/05/2017: NSR, old anteroseptal MS Assessment/Plan Mr. Cortez is a 71 year old man admitted with markedly abnormal high risk stress test and baseline mild LV dysfunction with moderate MR. He is currently asymptomatic and hemodynamically stable - Admit to hospitalist - Give aspirin 324 mg, metoprol 25 mg po x 1 now and lipitor 80 mg x 1 now - Cardiac catheterization with intent for revascularization indicated and recommended. Risks, benefits and alternatives discussed and patient would like to proceed. - If needs CABG, MR can be re-evaluated by ERNESTO at that time for mechanism and severity, may benefit from annuloplasty along with revascularization Thank you for allowing me to participate in the cardiovascular care of this patient. Please do not hesitate to contact me with questions or concerns.
[2017-11-05 12:39] LABS: ABS Basophils 0.1 10^3/ul (0-0.2); ABS Eosinophils 0.1 10^3/ul (0-0.6); ABS Lymphocytes 1.3 10^3/ul (1.0-4.8); ABS Monocytes 0.5 10^3/ul (0-0.8); ABS Nucleated RBC 0 10^3/ul; Hematocrit 42 % (42-52); Lymphocyte % 26.1 % (25-47); Mean Corpuscular HGB Conc 33 g/dl (31-36); Mean Corpuscular Hemoglobin 30 pg (27-31); Mean Corpuscular Volume 91 fL (80-94); Mean Platelet Volume 8 um3 (7.4-10.4); Nucleated Red Blood Cells % 0; Platelet Count 237 10^3/ul (150-450); Red Blood Count 4.63 10^6/ul (4.0-5.4); Red Cell Distribution Width 13 % (10.5-15); White Blood Count 4.9 10^3/ul (3.5-10.8)
[2017-11-05 12:53] LABS: INR 0.93 (0.77-1.02)
--- NOTE | 2017-11-05 13:13 | RAD ---
Indication: Chest pain. Single frontal view of the chest performed at 1255 hours was reviewed. Comparison is made with previous exam dated October 28, 2016. No mediastinal shift is noted. Heart is of normal size and configuration. Lung vela appear clear. Hyperinflated lung vela are noted. IMPRESSION: NO ACTIVE CARDIOPULMONARY DISEASE IS NOTED.
[2017-11-05] MEDS ORDERED: Acetaminophen TAB* 325 MG PO PRN (13:19)
[2017-11-05] MEDS ORDERED: Ondansetron INJ* 2 MG/ML VIAL IV PRN (13:19)
[2017-11-05] MEDS ORDERED: NS 0.9% 1000 ML* 1,000 ML IV SCH ×2 (13:45→16:30)
[2017-11-05] MEDS ORDERED: Heparin VIAL(*) 5000 UNITS/ML VIAL (FIVE THOUSAND) SUBCUT SCH (14:00)
[2017-11-05] MEDS ORDERED: VERAPAMIL 2.5 MG/ML 4 ML VIAL ONE (14:46)
[2017-11-05] MEDS ORDERED: fentaNYL* 50 MCG/ML 2 ML VIAL (100 MCG VIAL) ONE (14:46)
[2017-11-05] MEDS ORDERED: Heparin(*) 1000 UNIT/ML 10 ML VIAL CATH LAB IV ONE (14:46)
[2017-11-05] MEDS ORDERED: nitroGLYCERIN DRIP* 25,000 MCG/250 ML BTL ONE (14:47)
[2017-11-05] MEDS ORDERED: Lidocaine 1% INJ* 10 MG/ML 30 ML SDV ONE (14:47)
[2017-11-05] MEDS ORDERED: Heparin 2 UNITS/ML IVPREMIX* 2,000 ML IV ONE (14:47)
[2017-11-05] MEDS ORDERED: Iohexol 350 (CONTRAST) 200 ML MDV IV ONE (14:48)
[2017-11-05] MEDS ORDERED: Midazolam* 1 MG/ML 10 ML VIAL (10 MG) ONE (14:49)
--- NOTE | 2017-11-05 16:11 | HP ---
CC: Dr. Beavers; Miguel Munson DO * HISTORY AND PHYSICAL: DATE OF ADMISSION: 11/05/17 PRIMARY CARE PROVIDER: Dr. Beavers. ATTENDING PHYSICIAN WHILE IN THE HOSPITAL: Humera Arrington MD * (report dictated by Saud Leonard NP) CONSULTING SUPERVISOR SOLDER MAKING: Miguel Munson DO CHIEF COMPLAINT: Abnormal stress test. HISTORY OF PRESENT ILLNESS: Mr. Cortez is a 71-year-old male patient who is fairly healthy, has history of hyperlipidemia, which is diet controlled, history of BPH, right hip fracture, status post ORIF and has history of prostate cancer with radiation treatment only. He comes in today, he had been seen in the outpatient setting about two weeks ago. The patient had been having symptoms of when he rides his bike to work at [employer], up [facility], he has noted that he was becoming profoundly short of breath. He had had to stop. He has noticed that it was taking him longer to get the work each day. He denied any dyspnea, chest discomfort or palpitations at rest, but he said he had mild discomfort riding his bike up the [place] intermittently for about a year. He states that he smoked more than 50 years ago. He went to his primary for routine followup, explaining this to his primary, primary had ordered an stress test. He underwent it today. He got an abnormal stress test, which showed a large territory of severe intensity of reversible ischemia. He denied having any chest pain, dyspnea, denied feeling lightheaded, stated that he did not feel like he is going to faint or pass out. He did have one episode of syncope while we were working on a paper in September, but nothing recently like in the last couple of weeks and no chest pain. There was a concern and Dr. Munson felt that he had an abnormal stress test and the size of the reversible ischemia. He was sent to the ER for direct admission. The patient again at this point denies any chest pain, denies any fevers, chills, nausea or vomiting , denies having any abdominal discomfort. PAST MEDICAL HISTORY: 1. BPH. 2. History of right hip fracture. 3. Hyperlipidemia. 4. Prostate cancer, treated with radiation. PAST SURGICAL HISTORY: He has had tonsillectomy. He has had an ORIF of right hip. MEDICATIONS: Home meds include Flomax 0.4 mg p.o. daily. ALLERGIES: His allergy to medication includes MORPHINE. FAMILY HISTORY: His mother had valvular heart disease. He says his father had congestive heart failure. SOCIAL HISTORY: He occasionally drinks alcohol. He smoked more than 50 years ago. 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 He is . Surrogate decision maker is his . , REVIEW OF SYSTEMS: There is no documented fever. He denied having any significant weight change. There was no double vision. He denies having any ear discharge. There was no rhinorrhea, no sore throat and no thyroid enlargement. Denies any chest pain. He did admit to having dyspnea and mild chest discomfort with exertion. Denied having any abdominal discomfort. No nausea, no vomiting and no dysuria. No loss of consciousness. No pruritus and no skin ulcerations. Review of 14-systems is completed all others were negative. PHYSICAL EXAMINATION GENERAL: At this time, Mr. Cortez is a 71-year-old male patient sitting in the ED stretcher. He appears to be well nourished, well developed, and he does not appear to be in any acute distress. VITALS SIGNS: Blood pressure 157/90, pulse 70, respirations 16, O2 saturation 100%, temperature 97.9. HEENT: Head: Atraumatic, normocephalic. Eyes: EOMs are intact. Sclerae anicteric and not pale. NECK: Supple. Throat: Oral mucosa appears to be moist. No oropharyngeal erythema. LUNGS: Clear to auscultation bilaterally. No wheezes, rales or rhonchi. HEART: Sounds S1, S2. Regular rate and rhythm. No murmur, rubs, or gallops. ABDOMEN: Soft. It is flat. It was nontender. Bowel sounds present. EXTREMITIES: Pulses were 2+ throughout. He had no peripheral edema. He is moving all 4 extremities with 5/5 strength. NEUROLOGICALLY: The patient is awake, alert, and oriented to x3. Tongue is midline. Medical Staffing Coordinator are equal. No gross focal deficits. SKIN: Intact. LABORATORY DATA/DIAGNOSTIC STUDIES: WBC 4.9, RBC 4.63, hemoglobin 14.0, hematocrit of 42, platelet count of 237. His INR was 0.93. PTT of 30.7. Sodium of 136, potassium of 3.9, chloride of 102, bicarb 26, BUN 21, creatinine 0.80, glucose 102, lactic 1, calcium 9.7. Total bili 0.5, AST 23, ALT 13, alk phos 73. CK 191, CK-MB 6.7, troponin 0.01. Albumin of 4.2, LDH 170. He did have a chest x-ray, this showed no active cardiopulmonary disease. There was an EKG obtained today. Impression: Normal sinus rhythm with the rate of 70. No ST elevations or T-wave inversions were noted. He had biphasic T- wave in V1, flattened in V4. Old medical records were reviewed. ASSESSMENT AND PLAN: Mr. Cortez is a 71-year-old male patient coming into the ED today with complaints of again dyspnea on exertion and mild chest discomfort, over the last year, now found to have an abnormal stress test. We were asked to evaluate for admission. He will be admitted under inpatient status for: 1. Abnormal stress test. At this point, Dr. Bernardo will be evaluating the patient along with Dr. Munson for possible cath later today. He is on aspirin, statin, and a beta-yessica. His first troponin was negative. EKG is stable. He is not having any chest discomfort now. Should he have chest discomfort I probably will start him on nitrate and heparin, but at this point, he will be n.p.o. Pending the stress test, he has already been given aspirin, statin, and beta-yessica. We will continue with those medications for now and we will continue to follow; we will cycle troponins. 2. History of prostate cancer and benign prostatic hyperplastic. Continue with Flomax. 3. DVT prophylaxis, heparin subcu. 5. Code status, full code. 6. Fluid, electrolytes and nutrition, n.p.o. except for meds. I will order a normal saline at 75 an hour while he is n.p.o. TIME SPENT: Time spent on the admission was 60 minutes, greater than half of the time was spent [id number] with the patient obtaining my history and physical, other time spent going over the plan of care with the patient and implementing the plan of care. I did discuss the plan of care with my attending, Dr. Arrington, who is in agreement. SAUD LEONARD, HEALTH CLINICIAN [id number]/[facility] #: [id number] LAITH
[2017-11-05] MEDS ORDERED: amLODIPine TAB* 5 MG PO SCH (18:00)
--- NOTE | 2017-11-05 18:58 | CATH ---
CC: Dr. Gamaliel Beavers; Dr. Miguel Munson * CARDIAC CATHETERIZATION REPORT: DATE OF PROCEDURE: 11/05/17 - ROOM #ICU-09 INDICATION FOR PROCEDURE: The patient with progressive shortness of breath and chest heaviness on exertion with markedly abnormal stress test suggesting severe partially reversible ischemia to the anterior, anterolateral, apical region. PROCEDURE: Left heart catheterization, coronary arteriography, left ventriculography. DESCRIPTION OF PROCEDURE: The patient was interviewed and examined in the emergency room where the risks and benefits of cardiac catheterization were explained. He understood them. He was brought to the cardiovascular laboratory where a formal time-out was performed. His radial artery was assessed by ultrasound and found to be acceptable for site, for approach; and, as such, he was prepped and draped in sterile fashion. Right radial artery area was anesthetized with 1% lidocaine. The right radial artery was cannulated and a 6-Gibraltarian Glidesheath was placed. He received the radial artery cocktail including 3000 units of heparin, 300 mcg of nitroglycerin, and 3 mg of verapamil intraarterial. Coronary arteriography was performed utilizing a 5-Gibraltarian TIG 4-curve catheter. Central aortic pressure was recorded using a PIG Performa radial catheter, advanced to the ascending aorta. It was then passed across the aortic valve into the left ventricle. The left ventricular pressure was recorded. Left ventriculography was performed utilizing a total of 30 cc of Omnipaque dye at a rate of 10 cc per second. The catheter was then pulled back across the aortic valve to recheck gradient. At the end of the case , the catheter and sheath were removed and hemostasis was obtained with a Vasc Band. The total contrast used was 70 cc of Omnipaque dye. The radiation exposure included 6.8 minutes of fluoro time. The air kerma radiation was 583 milligray. The DAP radiation was 3692 microgray per sq. m. RESULTS: LEFT HEART CATHETERIZATION: Central aortic pressure was recorded at 155/71 with a mean of 109, left ventricular pressure 147 over left ventricular end diastolic pressure of 13. LEFT VENTRICULOGRAPHY: Performed in the STEVENS projection revealed suboptimal imaging with the contrast , but there appeared to be mild hypokinesis of the mid to distal anterior wall toward apical region. Overall, the EF still was low normal, mildly reduced range at 45% to 50%. CORONARY ARTERIOGRAPHY: A. Right coronary artery - a dominant vessel supplying multiple acute marginal branches, a PDA, and posterior left ventricular branch. There appeared to be an anterior take off to this vessel. The mid portion of the right coronary artery appeared to have a 50% to 55% obstruction seen. The mid portion of the posterior descending artery appeared to have a narrowing of 50%. B. Left coronary artery: 1. Left main - widely patent. 2. Left anterior descending artery - the left anterior descending artery was diffusely diseased throughout its proximal area with tapering the vessel into a critical 95% proximal lesion involving the second bifurcating diagonal branch. Past this point, there was another significant lesion of 90% in the continuation of the LAD. That area appeared to be at the take off of a moderate -sized septal product consultant. The rest of the LAD had distal narrowing as much as 50% to 60% distally at the take off of a small diagonal branch. 3. Circumflex artery - a nondominant vessel supplying a thin first obtuse marginal branch and then a trifurcating mid obtuse marginal branch ending in a low-lying posterior left ventricular branch. There is an eccentric- appearing proximal lesion after a thin first short obtuse marginal branch in its worst view appears to be approximately 50% to 55%. OVERALL ASSESSMENT: Significant disease involving the proximal to mid LAD area involving the second bifurcating diagonal branch. There is more distal disease, moderate in nature as well with moderate disease seen in the right coronary artery and the circumflex as described above. Overall, LV function is mildly reduced at 45% to 50% with anterior wall hypokinesis. At this point in time, given the complexity of this lesion and the lack of open heart surgery at [facility], the case was discussed with the public improvement inspector at [facility] who favor considering an attempt at intervening percutaneously with respect to this. We will arrange for transfer up there to get an opinion by Dr. Nader Mcneil, who will be seeing the patient tomorrow morning to give a third interventional opinion regarding attempting the procedure. [id number]/[facility] #: [id number] [facility] CENTEREliseo
[2017-11-05 19:05] VITALS: BP 136/91
[2017-11-05] MEDS ORDERED: Metoprolol Tartrate TAB* 25 MG PO SCH (21:00)
--- NOTE | 2017-11-06 07:50 | TRS ---
CC: Dr. Beavers; Dr. Bernardo; Dr. Munson; Dr. Rojas at [facility]. * TRANSFER SUMMARY: DATE OF ADMISSION: 11/05/17 DATE OF TRANSFER: 11/05/17 PRIMARY CARE PROVIDER: Dr. Beavers CONSULTING INTERVENTIONALIST: Dr. Bernardo CONSULTING COPPER MINER BLASTING: Dr. Munson ATTENDING PROVIDER: * (DICTATED BY SADAF CHAU NP) PRINCIPAL DIAGNOSIS: Coronary artery disease with multiple vessel disease and need for high risk PCI, not amenable to this institution. SECONDARY DIAGNOSES: Include: 1. Prostate cancer. 2. Benign prostatic hyperplasia, on chronic Flomax. DISCHARGE AND TRANSFER MEDICATIONS: Include: 1. Aspirin 81 mg daily. 2. Atorvastatin 80 mg daily. 3. Metoprolol 25 mg p.o. b.i.d. 4. Amlodipine 2.5 mg daily. 5. Tylenol 650 mg every 4 hours as needed. 6. Normal saline 75 cc an hour. 7. Zofran 4 mg IV every 6 hours as needed for nausea. TRANSFERRING HOSPITALIZATION: Inpatient. CONDITION AT TRANSFER: Stable. ACCEPTING PHYSICIAN: At [facility], is Dr. Rojas. HISTORY OF PRESENT ILLNESS AND HOSPITAL COURSE: I refer you to my H and P dictated earlier today. In short, Mr. Cortez is a 71-year-old male patient who has had about a year to 6 months of difficulty with exertion, chest discomfort and also having some shortness of breath with exertion. In addition to this about a month ago to 2 months ago, had a syncopal episode with exertion. He saw his primary about a week or so ago according to the patient for routine followup visit and a stress test was ordered, which was done today in the outpatient setting with Dr. Munson which showed a markedly abnormal stress test. He had a positive stress test which was suggestive of ischemia. The patient at that point was transferred to [facility] for cardiac catheterization of which he underwent today. I refer you to Dr. Bernardo's full cath report, but in short it was found that he had a significant multivessel disease. In addition to this, he was found to have narrowing and stenosis at the LAD, just at the start of the left main. It was felt that this patient was high risk PCI and it was felt that at this point that he should be transferred to a tertiary care center with cardiothoracic backup should PCI be attempted. At that point PCI was not performed here, it was aborted. Dr. Bernardo touched base with Interventional Cardiology at [facility] and also touched base with their hospitalist service and arranged transport and transfer to Dr. Rojas's service at [facility] for further aggressive PCI therapy with cardiothoracic surgery on site. The patient remained in stable condition. Post cath, it was noted that his blood pressures were is in the 160s. I did add on 2.5 of Norvasc for the time being, continuing aspirin, statin and beta yessica. Interventional Cardiology over the [place] did not recommend heparinization. The patient is in stable condition, will be transferred. EXAM ON DISCHARGE AND TRANSFER: Blood pressure 166/89, pulse 66, respirations 18, O2 sat 99%, temperature 99.4. Generally a this time, Mr. Cortez is a 70- year- old male patient, he is well nourished, well developed, sitting in the ICU bed, does not appear to be in acute distress. HEENT: Head atraumatic. Sclerae anicteric, not pale. Neck: Supple. Throat: Oral mucosa appears to be dry. No oropharyngeal erythema. Heart: Sounds S1, S2. Regular rate and rhythm. No murmurs, rubs, or gallops. Lungs: Clear to auscultation bilaterally. No wheezes, rales, or rhonchi. Abdomen: Soft, flat, nontender. Bowel sounds are present. Extremities: He has to the right wrist a compression devic. Distal CSM checks are intact to the right hand; otherwise extremities have 5/5 strength. Neurologically, he is awake, alert and oriented x3. No gross focal deficits. Skin is intact. He has a other puncture site to the right wrist, which is clean, dry and intact. LABS ON TRANSFER: WBC 4.9, RBC of 4.63, hemoglobin 14.0, hematocrit 42, platelet count 237. INR 0.93. Sodium 136, potassium 2.9, chloride 102, bicarb 26, BUN 21, creatinine 0.80, glucose 102, lactate 1.2, calcium 9.7. Total bilirubin is 0.5, AST 23, ALT 13, alk phos 73. CK 191, CK-MB 6.54. Troponin 0.01. His chest x-ray today showed no acute disease. He did have an EKG that today showed normal sinus rhythm with a rate of 70, no ST elevations or T-wave inversions. He had an echo done outpatient, EF of 45% to 50%. Again stress test positive for ischemia. We will send copies of this. CONDITION ON TRANSFER: Stable. He is to be transferred to Dr. Rojas at [facility]. TIME SPENT: Time spent on the transfer was approximately 40 minutes with greater than half the time spent [id number] with the patient going over the discharge plan. I did discuss the discharge plan, the transfer plan and the risk of transfer and benefits of the transfer with the patient and he was in agreement. SADAF CHAU NP [id number]/[facility] #: [id number] LAITH
[2017-11-06] MEDS ORDERED: Aspirin Low Dose CHEW TAB* 81 MG PO SCH (09:00)
[2017-11-06] MEDS ORDERED: Tamsulosin CAP* 0.4 MG PO SCH (09:00)
[2017-11-06] MEDS ORDERED: Atorvastatin* 80 MG TAB PO SCH (17:00)
== END 2017-11-05 19:00 | disposition short-term general hospital (02) ==
LOC: ED 11:50 → CHICATH 14:21 → INTOOBSV 17:11 → ICU 17:11
PROVIDERS: ADMIT Internal Medicine Cardiovascular Disease; ATTEND Internal Medicine Cardiovascular Disease
DX: I25.10 Atherosclerotic heart disease of native coronary artery without angina pectoris (principal); R94.39 Abnormal result of other cardiovascular function study; Z85.46 Personal history of malignant neoplasm of prostate; E78.5 Hyperlipidemia, unspecified; Z79.899 Other long term (current) drug therapy; Z82.49 Family history of ischemic heart disease and other diseases of the circulatory system; Z87.891 Personal history of nicotine dependence; I34.0 Nonrheumatic mitral (valve) insufficiency; I48.92 Unspecified atrial flutter; R06.02 Shortness of breath
CPT/HCPCS: 36415; 71045; 76937; 80053; 82550; 82553; 83605; 83721; 83880; 84484; 85025; 85610; 85730; 93005; 93458; A9270-GY; G0378; J1644; J2250; J3010

== ENCOUNTER 2018-05-18 19:45 | Emergency (ER) | payer BC, MEDICARE, OTHER ==
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
[2018-05-18 21:44] VITALS: BP 129/68
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
== END 2018-05-18 21:43 | disposition home or self-care (01) ==
LOC: ED 19:45
DX: S09.90XA Unspecified injury of head, initial encounter (principal); S70.01XA Contusion of right hip, initial encounter; V18.4XXA Pedal cycle driver injured in noncollision transport accident in traffic accident, initial encounter; Y93.55 Activity, bike riding; Y92.9 Unspecified place or not applicable; M16.11 Unilateral primary osteoarthritis, right hip; Z79.82 Long term (current) use of aspirin; Z87.891 Personal history of nicotine dependence; Z88.5 Allergy status to narcotic agent
CPT/HCPCS: 70450; 93005; 99282

== ENCOUNTER 2018-05-19 07:08 | Observation (INO) | payer BC, OTHER ==
[2018-05-19] MEDS ORDERED: NS 0.9% 1000 ML* 1,000 ML IV ONE (07:50)
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
[2018-05-19 08:25] LABS: ABS Basophils 0 10^3/ul (0-0.2); ABS Eosinophils 0.1 10^3/ul (0-0.6); ABS Lymphocytes 0.7 10^3/ul (1.0-4.8); ABS Monocytes 0.7 10^3/ul (0-0.8); ABS Neutrophils 5.8 10^3/ul (1.5-7.7); ABS Nucleated RBC 0 10^3/ul; Eosinophil % 1.6 % (0-6); Hematocrit 37 % (42-52); Hemoglobin 12.6 g/dl (14.0-18.0); Lymphocyte % 9.7 % (25-47); Mean Corpuscular HGB Conc 34 g/dl (31-36); Mean Corpuscular Hemoglobin 31 pg (27-31); Mean Corpuscular Volume 93 fL (80-94); Mean Platelet Volume 8.1 um3 (7.4-10.4); Nucleated Red Blood Cells % 0; Platelet Count 179 10^3/ul (150-450); Red Blood Count 4.04 10^6/ul (4.00-5.40); Red Cell Distribution Width 13 % (10.5-15); White Blood Count 7.3 10^3/ul (3.5-10.8)
--- NOTE | 2018-05-19 08:30 | RAD ---
HISTORY: head injury COMPARISONS: May 18, 2018 TECHNIQUE: Multiple contiguous axial CT scans were obtained of the head without intravenous contrast. FINDINGS: HEMORRHAGE/INFARCT: There is no hemorrhage or acute infarct. MASSES/SHIFT: There is no mass or shift. EXTRA-AXIAL SPACES: There are no extra-axial fluid collections. SULCI AND VENTRICLES: The sulci and ventricles are normal in size and position for the patient's stated age. CEREBRUM: There are no focal parenchymal abnormalities. BRAINSTEM: There are no focal parenchymal abnormalities. CEREBELLUM: There are no focal parenchymal abnormalities. VESSELS: The vessels are grossly normal. PARANASAL SINUSES: The paranasal sinuses are clear. ORBITS: The orbits are unremarkable. BONES AND SOFT TISSUE: No bone or soft tissue abnormalities are noted. OTHER: None IMPRESSION: NO ACUTE INTRACRANIAL PATHOLOGY.
[2018-05-19 08:37] LABS: EGFR Non-African American 67.7 (>60)
[2018-05-19 08:44] LABS: INR 0.95 (0.77-1.02)
--- NOTE | 2018-05-19 09:25 | RAD ---
Indication: Syncope. Single frontal view of the chest performed at 0906 hours was reviewed. Comparison is made with previous exam dated November 05, 2017. No mediastinal shift is noted. Heart is of normal size and configuration. Lung vela appear clear. IMPRESSION: NO ACTIVE CARDIOPULMONARY DISEASE IS NOTED.
[2018-05-19] MEDS ORDERED: Iohexol 350* (CONTRAST) 500 ML MDV IV ONE (09:35)
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
--- NOTE | 2018-05-19 11:37 | RAD ---
Indication: Evaluate for pulmonary embolus. Contrast: Administered 63.3 ml of OMNIPAQUE 350 mg/ml CTA of the chest was performed after IV contrast administration. Coronal and sagittal reconstructed images were obtained. Pulmonary arterial tree is well opacified. No evidence of filling defect is present to suggest pulmonary embolus. No aneurysmal dilatation of the thoracic aorta is noted. Heart demonstrates small pericardial effusion. No mediastinal or hilar adenopathy is noted. Small subcarinal lymph node measures up to 8 mm. No hilar adenopathy is noted. The trachea and major bronchi appear patent. The lung vela demonstrate no evidence of pleural fluid. Biapical scarring is noted. Calcified granuloma is noted in the right lower lobe adjacent to the major fissure. No alveolar consolidation is noted. Mild decrease in height of T8 and T9 vertebra are noted of the superior endplate. This is likely chronic in nature. IMPRESSION: No evidence of pulmonary embolus is noted. Calcified granuloma in the right lower lobe adjacent to the fissure. No alveolar consolidation is noted. Mild decrease in height of the superior plate of T8 and T9 which is likely chronic in nature.
[2018-05-19] MEDS ORDERED: Acetaminophen TAB* 325 MG PO PRN (12:50)
[2018-05-19] MEDS ORDERED: Al Hydrox/Mg Hydrox/Simet LIQ* 30 ML UDC PO PRN (12:50)
[2018-05-19] MEDS ORDERED: NS 0.9% 1000 ML* 1,000 ML IV SCH (13:00)
[2018-05-19] MEDS: Aspirin EC TAB* 81 MG TAB.EC PO SCH (14:41)
[2018-05-19] MEDS: Metoprolol Tartrate TAB* 25 MG PO SCH ×2 (14:41→21:39)
[2018-05-19] MEDS: Ticagrelor* 90 MG TAB PO SCH ×2 (14:41→21:39)
[2018-05-19] MEDS: Heparin VIAL(*) 5000 UNITS/ML VIAL (FIVE THOUSAND) SUBCUT SCH ×2 (14:41→21:39)
--- NOTE | 2018-05-19 15:42 | RAD ---
INDICATION: Syncope. Stat carotid ultrasound COMPARISON: CTA chest same date TECHNIQUE: Transverse and longitudinal scans of the carotid and vertebral arteries were performed with luna scale, color Doppler, and spectral Doppler imaging. Stenosis criteria is based on flow velocities that correlate with visual internal carotid artery diameter (NASCET criteria) FINDINGS: Right carotid: There is mild calcific plaque involving the bifurcation. There is no spectral broadening. The peak systolic velocity of the internal carotid artery is 72 cm/s and the peak diastolic velocity 22 cm/s. The ICA/CCA ratio is calculated at 0.9. This corresponds to a less than 50% diameter stenosis. Left carotid: There is mild plaque involving the bifurcation. There is no spectral broadening. The peak systolic velocity of the internal carotid artery is 85 cm/s and the peak diastolic velocity 36 cm/s. The ICA/CCA ratio is calculated at 0.9. This corresponds to a less than 50% diameter stenosis. Right vertebral: Right vertebral waveforms are normal and the flow is antegrade. Left vertebral: Left vertebral waveforms are normal and the flow is antegrade. IMPRESSION: NO EVIDENCE OF A HEMODYNAMICALLY SIGNIFICANT STENOSIS. CPT II Codes: 3100F [facility]
--- NOTE | 2018-05-19 17:14 | ECHO ---
Patient: AMAN MAYORGA [facility] Rec#: [id number] : 1945 Date: 05/19/2018 Age: 72y Height: 182.88 cm / 72.0 in Weight: 81.65 kg / 180.0 lbs Sex: M BSA: 2.04 Room#: [facility] Admit Date#: 05/19/2018 Type: Inpatient Referring: Corine Reeder Reading: Isabella Locke MD Forest Fire Management Officer: Neyda Kowalski RDCS CC: Gamaliel Beavers MD Transthoracic Echocardiogram Indication: Syncope BP: 137/75 HR: 55 Rhythm: Bradycardia Findings History: CAD with PCI, HLD, former smoker. Technical Comments: The study quality is fair. Completed at 1415. Left Ventricle: The left ventricular chamber size is normal. There is no left ventricular hypertrophy. There is a prominent septal knuckle. Global left ventricular wall motion and contractility are within normal limits. There is normal left ventricular systolic function. The estimated ejection fraction is 55-60%. Abnormal left ventricular diastolic filling is observed, consistent with impaired relaxation. Left Atrium: The left atrium is mildly dilated. Right Ventricle: Moderator Band present. The right ventricle is moderately dilated. The right ventricular global systolic function is normal. Right Atrium: The right atrium is mildly dilated. Aortic Valve: The aortic valve is trileaflet. The aortic valve leaflets are mildly thickened. There is evidence of aortic sclerosis without stenosis. There is a trace of aortic regurgitation. There is no evidence of aortic stenosis. Mitral Valve: The mitral valve leaflets are mildly thickened. There is mild to moderate mitral regurgitation. There is no evidence of mitral stenosis. Tricuspid Valve: The tricuspid valve leaflets are normal. There is mild tricuspid regurgitation. The right ventricular systolic pressure is estimated at 35 mmHg. There is evidence that pulmonary hypertension may be underestimated. There is no tricuspid stenosis. Pulmonic Valve: The pulmonic valve appears normal. There is a trace pulmonic regurgitation. There is no pulmonic stenosis. Pericardium: There is no significant pericardial effusion. Aorta: There is no dilatation of the ascending aorta. There is no dilatation of the aortic arch. The aortic root is normal in size. Pulmonary Artery: The main pulmonary artery is not well visualized. Venous: The inferior vena cava appears normal in size. There is an approximate 50% respiratory change in the inferior vena cava dimension. Conclusions Global left ventricular wall motion and contractility are within normal limits. There is a prominent septal knuckle. The estimated ejection fraction is 55-60%. Abnormal left ventricular diastolic filling is observed, consistent with impaired relaxation. The right ventricle is moderately dilated. The right ventricular global systolic function is normal. The aortic valve leaflets are mildly thickened with trace aortic regurgitation. There is mild to moderate mitral regurgitation. There is mild tricuspid regurgitation. The right ventricular systolic pressure is estimated at 35 mmHg, may be underestimated. Compared with echo of 01/13/18, EF is stable, RV dilatation newly noted, MR has increased from mild, PA pressure previously estimated as 26 mmHg. Measurements Name Value Normal Range RVIDd (AP) 2D 3.3 cm (0.9 - 2.6) RVDdMajor (2D) 5.3 cm (2.2 - 4.4) RAd ISD 4CH 5.6 cm (3.4 - 4.9) RA (A4C)W 4.4 cm (2.9 - 4.6) IVSd (2D) 0.79 cm (0.6 - 1) LVPWd (2D) 1 cm (0.6 - 1) LVIDd (2D) 4.9 cm (3.6 - 5.4) LVIDs (2D) 3.2 cm - LV FS (2D) 34 % (25 - 45) Aortic Annulus 2 cm (1.4 - 2.6) Ao root diameter (2D) 3.4 cm (2.1 - 3.5) Ascending Ao 3.3 cm (2.1 - 3.4) Aortic arch 2.3 cm (1.8 - 3.4) LA dimension (AP) 2D 3.4 cm (2.3 - 3.8) LAd ISD 4CH 4.2 cm (2.9 - 5.3) LA ISD 4CH W 4.5 cm (2.5 - 4.5) Name Value Normal Range LA ESV SP 4CH (A/L) 57 ml - LA ESV SP 2CH (A/L) 89 ml - LA ESV BP (A/L) 82 ml - LA ESV BP (A/L) index 40 ml/m2 - LA ESV SP 4CH (MOD) 51 ml - LA ESV SP 2CH (MOD) 80 ml - Name Value Normal Range MV E-wave Vmax 0.66 m/sec - MV deceleration time 261.46 msec - MV A-wave Vmax 0.85 m/sec - MV E:A ratio 0.77 ratio - LV septal e' Vmax 0.09 m/sec - LV lateral e' Vmax 0.07 m/sec - LV E:e' septal ratio 7.33 ratio - LV E:e' lateral ratio 9.43 ratio - Name Value Normal Range AV Vmax 1.3 m/sec - AV VTI 31.7 cm - AV peak gradient 7.01 mmHg - AV mean gradient 3.99 mmHg - LVOT Vmax 0.96 m/sec - LVOT VTI 20.4 cm - LVOT peak gradient 3.65 mmHg - LVOT mean gradient 1.6 mmHg - JANINE Vmax 0.78 m/sec - Name Value Normal Range MR Vmax 4.98 m/sec - MR VTI 140.84 cm - MR flow (PISA) 40.05 ml/sec - MR ERO 0.08 cm2 - MR PISA radius 0.45 cm - MR alias Vmax 30.9 cm/sec - Name Value Normal Range TR Vmax 2.6 m/sec - TR peak gradient 27 mmHg - RAP 8 mmHg - RVSP 35 mmHg - IVC diameter 1.7 cm - Name Value Normal Range PV Vmax 1.21 m/sec - PV peak gradient 5.89 mmHg -
[2018-05-19] MEDS ORDERED: Atorvastatin* 80 MG TAB PO SCH (21:00)
--- NOTE | 2018-05-20 00:36 | PN ---
Progress Note - Progress Note Date of Service: 05/20/18 Note: Paged for HR <40 - sleeping and BP - ok. Will d/c metoprolol.
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
[2018-05-20] MEDS: Heparin VIAL(*) 5000 UNITS/ML VIAL (FIVE THOUSAND) SUBCUT SCH (05:56)
[2018-05-20 06:02] LABS: ABS Basophils 0.1 10^3/ul (0-0.2); ABS Eosinophils 0.1 10^3/ul (0-0.6); ABS Lymphocytes 1.2 10^3/ul (1.0-4.8); ABS Monocytes 0.5 10^3/ul (0-0.8); ABS Neutrophils 2.7 10^3/ul (1.5-7.7); ABS Nucleated RBC 0 10^3/ul; Eosinophil % 3.2 % (0-6); Hematocrit 34 % (42-52); Hemoglobin 11.6 g/dl (14.0-18.0); Lymphocyte % 25.2 % (25-47); Mean Corpuscular HGB Conc 34 g/dl (31-36); Mean Corpuscular Hemoglobin 32 pg (27-31); Mean Corpuscular Volume 92 fL (80-94); Mean Platelet Volume 8.7 um3 (7.4-10.4); Nucleated Red Blood Cells % 0; Platelet Count 154 10^3/ul (150-450); Red Cell Distribution Width 13 % (10.5-15); White Blood Count 4.6 10^3/ul (3.5-10.8)
[2018-05-20 06:24] LABS: EGFR Non-African American 94.8 (>60)
[2018-05-20] MEDS: Aspirin EC TAB* 81 MG TAB.EC PO SCH (10:47)
[2018-05-20] MEDS: Ticagrelor* 90 MG TAB PO SCH (10:47)
[2018-05-20 12:54] VITALS: BP 133/67
--- NOTE | 2018-05-24 07:37 | PN ---
Subjective Date of Service: 05/20/18 Interval History: No complaints, Denies chest pain or shortness of breath. Denies any dizziness or or diaphoresis. Denies abd pain n/v/d. Did have bradycardia over night asymptomatic. Family History: Unchanged from Admission Social History: Unchanged from Admission Past Medical History: Unchanged from Admission Objective Oxygen Devices in Use Now: None Appearance: alert and oriented male , resting in bed, no acute distress Eyes: No Scleral Icterus, PERRLA Ears/Nose/Mouth/Throat: NL Teeth, Lips, Gums Neck: NL Appearance and Movements; NL JVP, Trachea Midline Respiratory: Symmetrical Chest Expansion and Respiratory Effort, Clear to Auscultation Cardiovascular: NL Sounds; No Murmurs; No JVD, RRR, No Edema Abdominal: NL Sounds; No Tenderness; No Distention Extremities: No Edema, - - eccchymotic area to left thigh and right hip Skin: No Rash or Ulcers, - - abrasion to right forearm and elbow Neurological: Alert and Oriented x 3 Nutrition: Taking PO's Result Diagrams: 05/20/18 05:34 05/20/18 05:34 Assess/Plan/Problems-Billing Assessment: Mr. Cortez is a 72 y.o male with a hx of CAD, HTN, HLD and hx of prostate cancer who presented to the emergency room after 2 syncopal episodes at home. Report dizziness and diaphoresis prior the syncopal episode. - Patient Problems (1) Syncope Status: Acute Code(s): R55 - SYNCOPE AND COLLAPSE SNOMED Code(s): 650528214 Comment: -suspect this may be related to bradycardia- will decrease batablocker to 12.5 mg as per cardiology recommendation - Carotid Duplex- WNL -CT head WNL - CTA chest - no PE (2) Bradycardia Status: Acute Code(s): R00.1 - BRADYCARDIA, UNSPECIFIED SNOMED Code(s): 15777352 Comment: Will change metoprolol to Metoprolol Succ 12.5 mg daily (3) Hypertension Status: Acute Code(s): I10 - ESSENTIAL (PRIMARY) HYPERTENSION SNOMED Code(s) : 74487293 Comment: SBP 110-130s. High blood pressure earlier likely due to pain. (4) DVT prophylaxis Status: Acute Code(s): GVB1021 - SNOMED Code(s): 751969316 Comment: Heparin SQ. (5) Full code status Status: Acute Code(s): Z78.9 - OTHER SPECIFIED HEALTH STATUS SNOMED Code(s) : 092109205 Status and Disposition: Discharge home
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
== END 2018-05-20 13:30 | disposition home or self-care (01) ==
LOC: ED 07:08 → MEDTELE 12:50
PROVIDERS: ADMIT Student in an Organized Health Care Education/Training Program; ATTEND Internal Medicine
DX: R55 Syncope and collapse (principal); R00.1 Bradycardia, unspecified; S06.9X1A Unspecified intracranial injury with loss of consciousness of 30 minutes or less, initial encounter; R42 Dizziness and giddiness; R51 Headache; S00.01XA Abrasion of scalp, initial encounter; S50.311A Abrasion of right elbow, initial encounter; W18.30XA Fall on same level, unspecified, initial encounter; Y92.89 Other specified places as the place of occurrence of the external cause; I25.10 Atherosclerotic heart disease of native coronary artery without angina pectoris; I08.1 Rheumatic disorders of both mitral and tricuspid valves; Z95.5 Presence of coronary angioplasty implant and graft; E78.5 Hyperlipidemia, unspecified; Z85.46 Personal history of malignant neoplasm of prostate; N40.0 Benign prostatic hyperplasia without lower urinary tract symptoms; J84.10 Pulmonary fibrosis, unspecified; Z87.891 Personal history of nicotine dependence
CPT/HCPCS: 36415; 70450; 71045; 71275; 80048; 80053; 83605; 83735; 84484; 85025; 85379; 85610; 85730; 93005; 93306; 93880; 96374; 99282; A9270-GY; G0378; J1644; Q9967

== ENCOUNTER 2018-10-08 08:43 | Observation (INO) | payer BC, MEDICARE ==
--- NOTE | 2018-10-08 09:00 | ED ---
Syncope/Near Syncope - History Of Current Complaint Chief Complaint: EDSyncope Time Seen by Provider: 10/08/18 08:54 - Allergies/Home Medications Allergies/Adverse Reactions: Allergies Allergy/AdvReac Type Severity Reaction Status Date / Time morphine Allergy Unknown Verified 05/18/18 19:48 Reaction Details PMH/Surg Hx/FS Hx/Imm Hx Endocrine/Hematology History: Denies: Hx Diabetes, Hx Thyroid Disease Cardiovascular History: Reports: Hx Coronary Artery Disease, Hx Hypercholesterolemia, Hx Valvular Heart Disease Denies: Hx Hypertension, Hx Peripheral Vascular Disease History: Reports: Hx Kidney Infection - 45 years ago per pt Denies: Hx Renal Disease Musculoskeletal History: Denies: Hx Arthritis, Hx Osteoporosis Sensory History: Reports: Hx Contacts or Glasses Denies: Hx Hearing Aid Opthamlomology History: Reports: Hx Contacts or Glasses Neurological History: Denies: Hx Headaches, Hx Seizures, Hx Transient Ischemic Attacks (TIA) Psychiatric History: Denies: Hx Anxiety, Hx Depression - Cancer History Cancer Type, Location and Year: PROSTATE, IN REMISSION - Surgical History Surgery Procedure, Year, and Place: radiation and implantation of beads for prostate cancer Infectious Disease History: No Infectious Disease History: Denies: Traveled Outside the [place] in Last 30 Days - Family History Known Family History: Positive: Hypertension - Social History Alcohol Use: Weekly Alcohol Amount: 4/ week Substance Use Type: Reports: None Hx Tobacco Use: Yes Smoking Status (MU): Former Smoker Length of Time of Smoking/Using Tobacco: 3 years Physical Exam Vital Signs On Initial Exam: Initial Vitals Temp Pulse Resp BP Pulse Ox 97.2 F 70 18 170/82 98 10/08/18 08:46 10/08/18 08:46 10/08/18 08:46 10/08/18 08:46 10/08/18 08:46 Diagnostics - Vital Signs Vital Signs Temp Pulse Resp BP Pulse Ox 10/08/18 08:46 97.2 F 70 18 170/82 98 - Laboratory Lab Statement: Any lab studies that have been ordered have been reviewed, and results considered in the medical decision making process. Discharge - Discharge Plan Referrals: Gamaliel Beavers MD [Primary Care Provider] - - Attestation Statements Document Initiated by Scribe: Yes Documenting Scribe: Ngozi Daley Provider For Whom Scribe is Documenting (Include Credential): Dr. Chris Sen MD Scribe Attestation: Ngozi Teixeira , scribed for Dr. Chris Sen MD on 10/08/18 at 0900.
--- NOTE | 2018-10-08 09:10 | ED ---
Syncope/Near Syncope - HPI Summary HPI Summary: Patient presents with syncope this morning about 4 AM. He reports he's had some left posterior shoulder pain since yesterday morning. He woke up with this pain and felt he slept awkwardly on his side causing these symptoms. He took Tylenol yesterday and reported this along with movement throughout the day helped his pain. He went to bed last night without difficulty. He woke again this morning at 4 AM with return of Lt posterior shoulder pain and as he tried to get out of bed to get Tylenol, he reports feeling lightheaded and sweaty and next thing he recalled, he was on the ground. He believes he landed on his left hip which woke him before hitting his head however he does report some pressure over the top of his head at this point in time - he says he thinks this is from his "elevated blood pressure". He is unsure if he had visual change during the events as it was pitch black in his house. He denies any current change in vision, blurred vision, floaters, nausea, vomiting, bloody nose. He does have some mild right-sided neck stiffness/soreness since falling - admits he may have strained a muscle here. Continues to have left-sided posterior shoulder/trapezius pain however he declines acetaminophen at this time as he states he is comfortable lying on the stretcher. He denies chest pain, shortness of breath, back pain, difficulty breathing or swallowing, abdominal pain, extremity pain/numbness/tingling/weakness. He admits he had a piece of bread prior to arrival and his brought him for evaluation. Pt was seen for syncope in 05/2018 - no changes in ECG, normal carotid doppler, no PE, normal CT brain. Reduced metoprolol as suspected syncope d/t bradycardia. Had f/u w/ Dr. Munson since - okay but recently had elevated BP and was not able to participate in cardiac rehab. H/o stents. He also admits to a "valve issues" - no known CHF, cardiomyopathy, aneurysm, OR. - History Of Current Complaint Chief Complaint: EDSyncope Time Seen by Provider: 10/08/18 08:54 Hx Obtained From: Patient - Allergies/Home Medications Allergies/Adverse Reactions: Allergies Allergy/AdvReac Type Severity Reaction Status Date / Time morphine Allergy Unknown Verified 05/18/18 19:48 Reaction Details PMH/Surg Hx/FS Hx/Imm Hx Previously Healthy: Yes Endocrine/Hematology History: Reports: Hx Anticoagulant Therapy - brilinta Denies: Hx Blood Disorders, Hx Diabetes, Hx Thyroid Disease, Autoimmune Disease Cardiovascular History: Reports: Hx Coronary Artery Disease - stent(s), Hx Hypercholesterolemia - statin, Hx Hypertension - beta yessica, Hx Valvular Heart Disease Denies: Hx Peripheral Vascular Disease Respiratory History: Denies: Hx Asthma, Hx Chronic Obstructive Pulmonary Disease (COPD), Hx Pulmonary Embolism History: Reports: Hx Kidney Infection - 45 years ago per pt Denies: Hx Renal Disease Musculoskeletal History: Denies: Hx Arthritis, Hx Osteoporosis Sensory History: Reports: Hx Contacts or Glasses Denies: Hx Hearing Aid Opthamlomology History: Reports: Hx Contacts or Glasses Neurological History: Denies: Hx Headaches, Hx Seizures, Hx Transient Ischemic Attacks (TIA) Psychiatric History: Denies: Hx Anxiety, Hx Depression - Cancer History Cancer Type, Location and Year: PROSTATE, IN REMISSION - Surgical History Surgery Procedure, Year, and Place: radiation and implantation of beads for prostate cancer Infectious Disease History: No Infectious Disease History: Denies: Traveled Outside the [place] in Last 30 Days - Family History Known Family History: Positive: Hypertension - Social History Occupation: Retired Lives: With Family - Alcohol Use: Weekly Alcohol Amount: 4/ week Hx Substance Use: No Substance Use Type: Reports: None Hx Tobacco Use: Yes - not currently Smoking Status (MU): Former Smoker Length of Time of Smoking/Using Tobacco: 3 years Review of Systems Constitutional: Negative Negative: Fever, Chills, Fatigue Eyes: Negative Negative: Photophobia, Blurred Vision, Diplopia, Drainage, Erythema ENT: Negative Cardiovascular: Negative Respiratory: Negative Gastrointestinal: Negative Positive: no symptoms reported Positive: Arthralgia, Myalgia. Negative: Decreased ROM, Edema Skin: Negative Positive: Headache, Syncope. Negative: Weakness, Paresthesia, Numbness, Slurred Speech Psychological: Normal All Other Systems Reviewed And Are Negative: Yes Physical Exam Triage Information Reviewed: Yes Vital Signs On Initial Exam: Initial Vitals Temp Pulse Resp BP Pulse Ox 97.2 F 70 18 170/82 98 10/08/18 08:46 10/08/18 08:46 10/08/18 08:46 10/08/18 08:46 10/08/18 08:46 Vital Signs Reviewed: Yes Appearance: Positive: Well-Appearing, No Pain Distress, Thin Skin: Positive: Warm, Skin Color Reflects Adequate Perfusion, Dry - no erythema , no ecchymosis, no wounds about head/ extremties/torso Head/Face: Positive: Normal Head/Face Inspection - no step off, no battlesign, no raccoon eyes Eyes: Positive: Normal, EOMI, SILVA - no photophobia, Conjunctiva Clear ENT: Positive: Normal ENT inspection, Hearing grossly normal, Pharynx normal - atraumatic, TMs normal - no hemotympanum, Uvula midline. Negative: Nasal drainage, Trismus, Muffled voice Dental: Positive: Other - dentures. Negative: Dental Fracture @ Neck: Positive: Supple, Tenderness @ - mild Rt paracervical mm TTP Respiratory/Lung Sounds: Positive: Clear to Auscultation, Breath Sounds Present. Negative: Rales, Rhonchi, Wheezes Cardiovascular: Positive: Normal, RRR, S1, S2. Negative: Murmur, Rub, Leg Edema Left, Leg Edema Right Abdomen Description: Positive: Nontender, No Organomegaly, Soft Bowel Sounds: Positive: Present Musculoskeletal: Positive: Strength/ROM Intact - FROM UE's and LE'S w/o restriction, Pain @ - Lt trapezius m w/ mild TTP Neurological: Positive: Normal, Sensory/Motor Intact, Alert, Oriented to Person Place, Time, CN Intact II-III, Facial Symmetry, Speech Normal. Negative: Slurred Speech, Dysarthric Aphasia, Pronator Drift Present Psychiatric: Positive: Normal - [place] Coma Scale Best Eye Response: 4 - Spontaneous Best Motor Response: 6 - Obeys Commands Best Verbal Response: 5 - Oriented Coma Scale Total: 15 Diagnostics - Vital Signs Vital Signs Temp Pulse Resp BP Pulse Ox 10/08/18 09:08 98 10/08/18 09:05 66 17 100 10/08/18 09:04 69 20 148/82 99 10/08/18 08:46 97.2 F 70 18 170/82 98 - Laboratory Result Diagrams: 10/09/18 05:59 10/09/18 05:59 Lab Statement: Any lab studies that have been ordered have been reviewed, and results considered in the medical decision making process. Course/Dx Course Of Treatment: ECG: NSR, no ST elevations, no change from prior ECG. CT brain, cervical spine: no acute findings but has mild chronic findings. C5 to C6 with bilateral uncovertebral and facet hypertrophy resulting in moderate bilateral neuroforaminal narrowing. There is mild narrowing of the central canal. In C6-C7 there is bilateral uncovertebral hypertrophy. There is moderate left and mild right neuroforaminal narrowing. There is no osseous central canal stenosis. These findings could be contributing to pt's Lt shoulder sx. CXR: no active cardiopulm dz. Orthostatics reveal significant drop from 140's to 70's and pt reports worsening of Lt shoulder pain during transition. Updated ECG indicates larry in 50's, no ST elevations and troponins are neg x 2. Added D-dimer. Suspect heart rate is being masked by BB - he denies recent dehydration and no use of diuretics - unsure why his pressure is dropping so low. Will refrain from using nitro or anti-coags for Lt shoulder pain given drop in pressure and use of brilinta in the face of normal trops and no STEMI on ECG. Diff dx: dehydration, low BP, aortic dissection, PE. Discussed case with patient and Mickie Page PORTRAIT PHOTOGRAPHER who agrees to admit. Pt in stable condition at time of transition of care. Pain in Lt posterior shoulder when standing and drop in BP - shoulder pain went to 7/10 w/o syncope w/ standing but admits he felt a little dizzy - now shoulder pain is 5/10 and continues to decline pain medication. - Diagnoses Provider Diagnoses: Syncope, Left shoulder pain Discharge - Sign-Out/Discharge Documenting (check all that apply): Patient Departure - Discharge Plan Condition: Stable Disposition: ADMITTED TO [facility] - Billing Disposition and Condition Condition: STABLE Disposition: Admitted to [facility]
[2018-10-08 09:32] LABS: ABS Basophils 0.1 10^3/ul (0-0.2); ABS Eosinophils 0.1 10^3/ul (0-0.6); ABS Lymphocytes 0.8 10^3/ul (1.0-4.8); ABS Monocytes 0.6 10^3/ul (0-0.8); ABS Neutrophils 5.6 10^3/ul (1.5-7.7); ABS Nucleated RBC 0 10^3/ul; Eosinophil % 1.2 %; Hematocrit 40 % (42-52); Hemoglobin 13.6 g/dl (14.0-18.0); Lymphocyte % 11.1 %; Mean Corpuscular HGB Conc 34 g/dl (31-36); Mean Corpuscular Hemoglobin 31 pg (27-31); Mean Corpuscular Volume 91 fL (80-94); Mean Platelet Volume 8.1 fL (7.4-10.4); Nucleated Red Blood Cells % 0.1; Platelet Count 201 10^3/ul (150-450); Red Cell Distribution Width 13 % (10.5-15); White Blood Count 7.1 10^3/ul (3.5-10.8)
[2018-10-08 09:47] LABS: Activated Partial Thrombo Time 27.8 seconds (26.0-36.3); INR 0.99 (0.77-1.02)
[2018-10-08 10:09] LABS: ALT 21 U/L (7-52); AST 25 U/L (13-39); Albumin 4.2 g/dL (3.2-5.2); Albumin/Globulin Ratio 1.6 (1-3); Alkaline Phosphatase 83 U/L (34-104); Anion Gap 6 mmol/L (2-11); BUN/Creatinine Ratio 28.6 (8-20); Blood Urea Nitrogen 22 mg/dL (6-24); CO2 Carbon Dioxide 29 mmol/L (22-32); Calcium 9.5 mg/dL (8.6-10.3); Chloride 104 mmol/L (101-111); EGFR African American 119.8 (>60); Globulin 2.6 g/dL (2-4); Glucose 141 mg/dL (70-100); Magnesium 1.7 mg/dL (1.9-2.7); Potassium 3.9 mmol/L (3.5-5.0); Sodium 139 mmol/L (135-145); Total Protein 6.8 g/dL (6.4-8.9)
[2018-10-08 10:16] LABS: Alcohol < 10 mg/dL (<10)
[2018-10-08 10:29] LABS: TSH (Thyroid Stimulating Horm) 2.15 mcIU/mL (0.34-5.60)
[2018-10-08] MEDS ORDERED: NS 0.9% 1000 ML* 1,000 ML IV ONE ×2 (12:34→12:43)
[2018-10-08 12:39] LABS: Urine Appearance Cloudy; Urine Bilirubin Negative (Negative); Urine Blood Negative (Negative); Urine Color Yellow; Urine Glucose Negative (Negative); Urine Ketones Negative (Negative); Urine Nitrite Negative (Negative); Urine Protein Negative (Negative); Urine Specific Gravity 1.014 (1.010-1.030); Urine Urobilinogen Negative (Negative)
[2018-10-08] MEDS ORDERED: Ondansetron INJ* 2 MG/ML VIAL IV PRN (13:38)
[2018-10-08] MEDS ORDERED: NS 0.9% 1000 ML* 1,000 ML IV SCH (13:45)
[2018-10-08] MEDS ORDERED: Magnesium Sulfate 2 GM IV* 2 GM/50 ML BAG IVPB ONE (13:56)
[2018-10-08] MEDS ORDERED: Iohexol 350* (CONTRAST) 500 ML MDV IV ONE (14:12)
[2018-10-08] MEDS: Heparin VIAL(*) 5000 UNITS/ML VIAL (FIVE THOUSAND) SUBCUT SCH ×2 (16:02→20:43)
--- NOTE | 2018-10-08 16:09 | ECHO ---
Patient: AMAN MAYORGA Rec#: [id number] : 1945 Date: 10/08/2018 Age: 72y Height: 183 cm / 72.0 in Weight: 65.8 kg / 145.0 lbs Sex: M BSA: 1.86 Room#: -12 Admit Date#: 10/08/2018 Type: Inpatient Referring: Saud Leonard NP Reading: Kallie Bhatia MD Pathology Secretary: Neyda Kowalski RDCS CC: Gamaliel Beavers MD Transthoracic Echocardiogram Indication: Syncope BP: 136/70 HR: 67 Rhythm: NSR with PACs Findings History: CAD with PCI, HTN. Technical Comments: The study quality is fair. Completed at 1445. Left Ventricle: The left ventricular chamber size is normal. Mild concentric left ventricular hypertrophy is observed. There is a focal wall motion abnormality present. There is normal left ventricular systolic function. The estimated ejection fraction is 55-60%. Abnormal left ventricular diastolic function is observed. There is an E to A reversal in the mitral valve flow pattern suggestive of diastolic dysfunction. Left Atrium: The left atrial chamber size is normal. Right Ventricle: Moderator Band present. The right ventricle is mildly dilated. The right ventricular global systolic function is normal. Right Atrium: The right atrium is mildly dilated. Aortic Valve: The aortic valve is trileaflet. The aortic valve leaflets are mildly thickened. There is evidence of aortic sclerosis without stenosis. There is a trace of aortic regurgitation. There is no evidence of aortic stenosis. Mitral Valve: The mitral valve leaflets are mildly thickened. There is mild to moderate mitral regurgitation. There is no evidence of mitral stenosis. Tricuspid Valve: The tricuspid valve leaflets are normal. There is trace to mild tricuspid regurgitation. The right ventricular systolic pressure is estimated at 44 mmHg. There is evidence of mild to moderate pulmonary hypertension. There is no tricuspid stenosis. Pulmonic Valve: The pulmonic valve appears normal. There is a trace pulmonic regurgitation. There is no pulmonic stenosis. Pericardium: There is no significant pericardial effusion. Aorta: There is no dilatation of the ascending aorta. The aortic arch is not well visualized. The aortic root is normal in size. Pulmonary Artery: The main pulmonary artery appears normal. Venous: The inferior vena cava is dilated. There is an approximate 50% respiratory change in the inferior vena cava dimension. Summary: There are changes noted when compared to the previous study done on 05/19/2018, PHTN is increase from 35 mmHg then. Conclusions Mild concentric left ventricular hypertrophy is observed. There is normal left ventricular systolic function. The estimated ejection fraction is 55-60%. Abnormal left ventricular diastolic function is observed. There is an E to A reversal in the mitral valve flow pattern suggestive of diastolic dysfunction. The right atrium is mildly dilated. There is a trace of aortic regurgitation. There is mild to moderate mitral regurgitation. There is trace to mild tricuspid regurgitation. There is evidence of mild to moderate pulmonary hypertension. Measurements Name Value Normal Range RVIDd (AP) 2D 3.3 cm (0.9 - 2.6) RVDdMajor (2D) 4.6 cm (2.2 - 4.4) RAd ISD 4CH 5.4 cm (3.4 - 4.9) RA (A4C)W 4.4 cm (2.9 - 4.6) IVSd (2D) 1.1 cm (0.6 - 1) LVPWd (2D) 1.1 cm (0.6 - 1) LVIDd (2D) 4.7 cm (3.6 - 5.4) LVIDs (2D) 3.3 cm - LV FS (2D) 30 % (25 - 45) Aortic Annulus 2.2 cm (1.4 - 2.6) Ao root diameter (2D) 3.1 cm (2.1 - 3.5) Ascending Ao 3.3 cm (2.1 - 3.4) LA dimension (AP) 2D 3.4 cm (2.3 - 3.8) LAd ISD 4CH 4.4 cm (2.9 - 5.3) LA ISD 4CH W 4.8 cm (2.5 - 4.5) Name Value Normal Range LA ESV BP (A/L) index 29 ml/m2 - Name Value Normal Range MV E-wave Vmax 0.6 m/sec - MV deceleration time 229 msec - MV A-wave Vmax 0.8 m/sec - MV E:A ratio 0.8 ratio - LV septal e' Vmax 0.07 m/sec - LV lateral e' Vmax 0.06 m/sec - LV E:e' septal ratio 8.6 ratio - LV E:e' lateral ratio 10 ratio - Name Value Normal Range AV Vmax 1.2 m/sec - AV VTI 24 cm - AV peak gradient 5 mmHg - AV mean gradient 2 mmHg - LVOT Vmax 1.2 m/sec - LVOT VTI 22.6 cm - LVOT peak gradient 5 mmHg - LVOT mean gradient 2 mmHg - JANINE Vmax 0.5 m/sec - Name Value Normal Range TR Vmax 2.7 m/sec - TR peak gradient 29 mmHg - RAP 15 mmHg - RVSP 44 mmHg - IVC diameter 2.4 cm - Name Value Normal Range PV Vmax 1.3 m/sec - PV peak gradient 6 mmHg -
--- NOTE | 2018-10-08 20:06 | HP ---
CC: Dr. Beavers; Dr. Munson * HISTORY AND PHYSICAL: DATE OF ADMISSION: 10/08/18 PRIMARY CARE PROVIDER: Dr. Beavers. PRIMARY ENGINE WIPER: Dr. Munson. ATTENDING PHYSICIAN WHILE IN THE HOSPITAL: Rosa Patel DO * (report dictated by Saud Leonard NP) CHIEF COMPLAINT: Syncope. HISTORY OF PRESENT ILLNESS: Mr. Cortez is a 72-year-old male patient. He carries a history of BPH, right hip fracture, hyperlipidemia, prostate cancer, CAD, and hypertension. He also had a history of syncope, presumably related to bradycardia back in May and medications were adjusted at that point; however, he states for the last 2 weeks, he has been going to cardiac rehab and it has been noted that his blood pressure has been elevated. It has been 190, 200 systolic. According to the patient, a new medication was started, appears to be amlodipine. He has been taking that for the last 8 days. He states that over the couple of days, he has been having left shoulder pain and also some numbness down to his pointer finger. He states that it mostly is in that finger and it does go down his arm and also at times when he moves his neck, his neck has been hurting. He got up this morning, he was going to take some Tylenol at 4 in the morning and when we went to stand up, he started feeling dizzy. He walked to the door and the next thing he knew he heard a loud thud. He knew he had fallen and fainted. Because of that, he came in to the hospital. He denied having any chest pain prior to or after. No shortness of breath. He states he has been taking his meds and the recent change in medication was the patient's amlodipine. He denied any recent vomiting. No fever. No chills. He denied having any tarry stools or coffee- ground emesis. He came in to the ED and they checked orthostatics and when he stood up, his blood pressure was 76/60. So, because of this, we were asked to evaluate for admission. PAST MEDICAL HISTORY: Significant for: 1. BPH. 2. Right hip fracture. 3. Dyslipidemia. 4. Prostate cancer. 5. CAD. 6. Hypertension. 7. Syncope. PAST SURGICAL HISTORY: 1. He has had tonsillectomy. 2. ORIF, right hip. 3. Heart catheterization x2. HOME MEDICATIONS: Include: 1. Amlodipine 2.5 mg daily. 2. Flomax 0.4 mg daily. 3. Toprol 12.5 mg daily. 4. Lipitor 80 mg daily. 5. Aspirin 81 mg daily. 6. Tylenol 325 mg p.o. every 6 hours as needed. 7. Brilinta 90 mg p.o. b.i.d. ALLERGIES TO MEDICATIONS: Include MORPHINE. FAMILY HISTORY: His mother had a history of valvular heart disease. Father had a history of CHF. SOCIAL HISTORY: He occasionally drinks alcohol. He does not smoke cigarettes. 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 Surrogate decision maker is his . REVIEW OF SYSTEMS: There is no documented fever. He denied having any significant weight change. There is no double vision. He denies having any ear discharge. There was no rhinorrhea. There is no sore throat. No thyroid enlargement. Denied having any chest pain. There was no orthopnea. There was no nocturnal dyspnea. There is no abdominal pain. No nausea, no vomiting. No dysuria, no frequency. No seizure. There was a loss of consciousness. No pruritus and no skin ulcerations. Review of 14 systems completed, all others negative. PHYSICAL EXAMINATION GENERAL: At this time, Mr. Cortez is a 72-year-old male patient. He appears to be well nourished, well developed. He does not appear to be in any acute distress. VITAL SIGNS: Blood pressure again when he was standing was 76/60, when he is sitting, it was 144/86 with a pulse of 65, respirations 18, O2 sat 99%, temperature 97.2. HEENT: Head: Atraumatic, normocephalic. Eyes: EOMs intact. Sclerae anicteric and not pale. Throat: Oral mucosa appears to be moist. No oropharyngeal erythema. NECK: Supple. LUNGS: Clear to auscultation. No wheezes, rales, or rhonchi. HEART: Sounds S1, S2. He had a regular rate and rhythm. There were no murmurs , rubs, or gallops. ABDOMEN: Soft. It was flat, nontender. Bowel sounds present. EXTREMITIES: Pulses were 2+ throughout. He is moving all 4 extremities with 5/ 5 strength. NEUROLOGIC: He is awake. He is alert. He is oriented x3. He had no gross focal deficits. SKIN: Intact. LABORATORY DATA/DIAGNOSTIC STUDIES: Labs today revealed a WBC of 7.1, RBC of 4.40, hemoglobin of 13.6, hematocrit of 40, platelet count of 201. His INR was 0.99. PTT of 27.8. His D-dimer was greater than 1050. His sodium is 139, potassium 3.9, chloride of 104, bicarb 29, BUN 22, creatinine 0.77, glucose 141. Lactic 1.4. Calcium 9.5. Mag 1.7. Total bili 0.7, AST 25, ALT 21, alk phos 83. Troponin 0.00. Repeat was 0. TSH is normal. Urine was obtained, negative. Toxicology negative. He had multiple imaging here in the ED starting out with cervical spine CT, which showed osteopenia, degenerative disk disease, and osteoarthritis, no acute osseous injury to the cervical spine. He did have an echo done with previous syncopal episodes, EF was 55% to 60%. He had a brain CT obtained today , which revealed no acute intracranial mass or hemorrhage. He had a chest x- ray obtained today, which revealed no active pulmonary disease. There was an EKG obtained today showing sinus bradycardia, rate of 56 with LVH, but no ST elevations or T wave inversions were noted. When you review it to his EKG from May, it appears to be similar, but the rate was slower. Old medical records were reviewed. ASSESSMENT AND PLAN: Mr. Cortez is a 72-year-old male patient coming into the ED today with complaints of a syncopal episode. We were asked to evaluate for admission. He will be admitted under observation status for: 1. Syncope. Again, I suspect this is related to orthostasis. My plan would be to repeat his orthostatics. I am going to check a cortisol level. We will continue IV fluids. I will hold his amlodipine. If his blood pressure does become an issue, we could consider adding a FABY or an ARB and we will continue to follow. I would avoid going up on rate controlling agents as he has had bradycardia in the past. Because of the elevated D-dimer, I did order a CTA of the chest. I have also ordered an echo. We will repeat the orthostatic blood pressures, place him on telemetry. 2. Left shoulder pain. Again, he has had 2 troponins, which were negative. I will check a third one. It sounds like this is musculoskeletal, may be arriving from the neck and the cervical spine. He does have some cervical spine disease with moderate bilateral narrowing at C5-6 and there is also some moderate left and mild right neuroforaminal narrowing at C6-7, which could be certainly contributing to this discomfort. I have ordered an MRI. If there is significant disease, they will, however, consider getting neurosurgical input. We will also order a shoulder x-ray as well and we will continue to follow this closely. 3. Benign prostatic hypertrophy. Continue Flomax. I do note that this can cause orthostasis, but he has been on this for several years and I think that the culprit could be the Norvasc. 4. Hyperlipidemia. Continue statin therapy. 5. Coronary artery disease. Continue Brilinta, aspirin, statin therapy and beta- yessica. 6. Hypertension. Again, we will monitor, particularly coming off the amlodipine. If he continues to elevate, we can consider adding an FABY or ARB. 7. DVT prophylaxis. He will be placed on heparin subcu. 8. Code status. Full code. 9. Fluids, electrolytes, and nutrition. He can have a heart healthy diet. TIME SPENT: Time spent on the admission was 60 minutes, greater than half of the time spent [id number] with the patient obtaining my history and physical, other half of the time was spent going over the plan of care with the patient and implementing the plan of care. I discussed the plan with my attending, Dr. Patel; she is in agreement. SAUD LEONARD, MORA [id number]/[facility] #: [id number] LAITH
[2018-10-08] MEDS: Gabapentin CAP(*) 100 MG PO SCH (20:42)
[2018-10-08] MEDS: Ticagrelor* 90 MG TAB PO SCH (20:42)
[2018-10-08] MEDS: Acetaminophen TAB* 325 MG PO PRN (20:48)
[2018-10-09] MEDS: Acetaminophen TAB* 325 MG PO PRN ×2 (04:19→10:13)
[2018-10-09] MEDS: Heparin VIAL(*) 5000 UNITS/ML VIAL (FIVE THOUSAND) SUBCUT SCH ×2 (05:27→15:06)
[2018-10-09 06:09] LABS: ABS Basophils 0.1 10^3/ul (0-0.2); ABS Eosinophils 0.2 10^3/ul (0-0.6); ABS Lymphocytes 1.2 10^3/ul (1.0-4.8); ABS Monocytes 0.6 10^3/ul (0-0.8); ABS Neutrophils 3.3 10^3/ul (1.5-7.7); ABS Nucleated RBC 0 10^3/ul; Eosinophil % 3.2 %; Hematocrit 38 % (42-52); Hemoglobin 12.9 g/dl (14.0-18.0); Mean Corpuscular HGB Conc 34 g/dl (31-36); Mean Corpuscular Hemoglobin 31 pg (27-31); Mean Corpuscular Volume 91 fL (80-94); Mean Platelet Volume 8.1 fL (7.4-10.4); Nucleated Red Blood Cells % 0.1; Platelet Count 197 10^3/ul (150-450); Red Blood Count 4.18 10^6/ul (4.00-5.40); Red Cell Distribution Width 13 % (10.5-15); White Blood Count 5.4 10^3/ul (3.5-10.8)
[2018-10-09 06:13] LABS: INR 1.05 (0.77-1.02)
[2018-10-09 06:27] LABS: BUN/Creatinine Ratio 21.1 (8-20); Calcium 8.8 mg/dL (8.6-10.3); EGFR African American 121.6 (>60); EGFR Non-African American 100.5 (>60); HDL Cholesterol 45.2 mg/dL; Potassium 3.9 mmol/L (3.5-5.0)
[2018-10-09] MEDS: Gabapentin CAP(*) 100 MG PO SCH ×2 (08:17→15:06)
[2018-10-09] MEDS: Ticagrelor* 90 MG TAB PO SCH (08:18)
[2018-10-09] MEDS ORDERED: Tamsulosin CAP* 0.4 MG PO SCH (09:00)
[2018-10-09] MEDS ORDERED: Atorvastatin* 80 MG TAB PO SCH (09:00)
[2018-10-09] MEDS ORDERED: Metoprolol Succinate XL TAB* 25 MG PO SCH (09:00)
[2018-10-09] MEDS ORDERED: Aspirin EC TAB* 81 MG TAB.EC PO SCH (09:00)
--- NOTE | 2018-10-09 15:41 | PN ---
Subjective Date of Service: 10/09/18 Interval History: Pt resting comfortably in bed, NAD. Pt denies chest pain, shortness of breath, dizziness, lightheadedness, abdominal pain, N/V. Continues to endorse left shoulder pain and tingling down to finger tip. He reports that the pain comes and goes. Objective Active Medications: Acetaminophen (Tylenol Tab*) 650 mg PO Q4H PRN PRN Reason: FEVER/PAIN Last Admin: 10/09/18 10:13 Dose: 650 mg Aspirin (Aspirin Ec Tab*) 81 mg PO DAILY [facility] Last Admin: 10/09/18 08:18 Dose: 81 mg Atorvastatin Calcium (Lipitor*) 80 mg PO DAILY [facility] Last Admin: 10/09/18 08:18 Dose: 80 mg Gabapentin (Neurontin Cap(*)) 100 mg PO TID [facility] Last Admin: 10/09/18 15:06 Dose: 100 mg Heparin Sodium (Porcine) (Heparin Vial(*)) 5,000 units SUBCUT Q8HR [facility] Last Admin: 10/09/18 15:06 Dose: 5,000 units Metoprolol Succinate (Toprol Xl Tab*) 12.5 mg PO DAILY [facility] Last Admin: 10/09/18 10:09 Dose: 12.5 mg Ondansetron HCl (Zofran Inj*) 4 mg IV Q6H PRN PRN Reason: NAUSEA Tamsulosin HCl (Flomax Cap*) 0.4 mg PO DAILY [facility] Last Admin: 10/09/18 08:18 Dose: 0.4 mg Ticagrelor (Brilinta*) 90 mg PO BID [facility] Last Admin: 10/09/18 08:18 Dose: 90 mg Vital Signs - 8 hr 10/09/18 10/09/18 10/09/18 07:56 08:17 11:20 Temperature 97.9 F 98.3 F Pulse Rate 57 65 Respiratory 20 16 20 Rate Blood Pressure 154/73 125/63 (mmHg) O2 Sat by Pulse 97 100 Oximetry 10/09/18 15:06 Temperature Pulse Rate Respiratory 16 Rate Blood Pressure (mmHg) O2 Sat by Pulse Oximetry Oxygen Devices in Use Now: None Eyes: No Scleral Icterus Ears/Nose/Mouth/Throat: NL Teeth, Lips, Gums, Mucous Membranes Moist Neck: NL Appearance and Movements; NL JVP, Trachea Midline Respiratory: Symmetrical Chest Expansion and Respiratory Effort, Clear to Auscultation Cardiovascular: NL Sounds; No Murmurs; No JVD, RRR, No Edema Abdominal: NL Sounds; No Tenderness; No Distention Skin: No Rash or Ulcers Neurological: Alert and Oriented x 3, NL Sensation, NL Muscle Strength and Tone Nutrition: Taking PO's Result Diagrams: 10/09/18 05:59 10/09/18 05:59 Assess/Plan/Problems-Billing Assessment: - Patient Problems (1) Syncope Current Visit: No Status: Acute Code(s): R55 - SYNCOPE AND COLLAPSE SNOMED Code(s): 436871939 Comment: - Orthostatic to SBP 70s demonstrated in ED. This is also in the setting of starting norvasc 8 days ago, which was held. Also given IVF. Repeat orthostatics today were WNL - Does have hx of syncope secondary to bradycardia, however pt was not bradycardic on tele and HR was 72 when he was hypotensive. - No acute changes on brain CT - CTA chest with no PE (2) Shoulder pain, left Current Visit: Yes Status: Acute Code(s): M25.512 - PAIN IN LEFT SHOULDER SNOMED Code(s): 41281341 Comment: - MRI with severe bilateral neuroforamenal narrowing at C5-C6 and moderate narrowing of central canal, which corresponds with pt's symptoms of left shoulder pain and tingling down to fingertip - Continue gabapentin - Neurosurg consult pending (3) CAD (coronary artery disease) Current Visit: Yes Status: Acute Code(s): I25.10 - ATHSCL HEART DISEASE OF [place] CORONARY ARTERY W/O ANG PCTRS SNOMED Code(s): 45283936 Comment: - w/ hx stents - Continue aspirin, metoprolol, lipitor, brilinta (4) Hypertension Current Visit: No Status: Acute Code(s): I10 - ESSENTIAL (PRIMARY) HYPERTENSION SNOMED Code(s): 93624769 Comment: - Norvasc held in the setting of orthostatic hypotension and syncope - SBP today 120s-150s (5) DVT prophylaxis Current Visit: No Status: Acute Code(s): MGK6645 - SNOMED Code(s): 173971537 Comment: Heparin SQ. (6) Full code status Current Visit: No Status: Acute Code(s): Z78.9 - OTHER SPECIFIED HEALTH STATUS SNOMED Code(s): 913775581 Status and Disposition: Stable for discharge home today
[2018-10-09 16:18] VITALS: BP 130/75
--- NOTE | 2018-10-09 22:50 | CONS ---
CONSULTATION NOTE: DATE OF CONSULT: 10/09/18 HISTORY OF PRESENT ILLNESS: The patient is a very pleasant 72-year-old right hand gentleman with history of BPH, right hip fracture, status post ORIF, hyperlipidemia, prostate cancer, coronary artery disease, and hypertension with a prior history of syncope. Patient reports that few days ago, he woke up with significant right neck pain and shoulder pain radiating to the left upper extremity with left upper extremity numbness in the first 2 digits. Patient reports that he had syncopal episode and he fell. He was admitted to the hospital for pain control and for syncope workup and during workup, MRI of the cervical spine revealed significant degenerative disk disease. The patient reports that he has mild neck pain but mostly left shoulder pain without weakness of the upper extremities but he does have numbness at the left first 2 fingers. He ambulates without significant difficulty. He thought his balance is at his baseline. He denies any urinary or GI incontinence. His perineal sensation is intact. 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 He is accompanied today by his . They have 8 children. PAST MEDICAL HISTORY: BPH, right hip fracture, dyslipidemia, prostate cancer, coronary artery disease, hypertension, syncope. PAST SURGICAL HISTORY: Tonsillectomy; ORIF, right hip; heart catheterization x2. Patient has a history of heart stent and he is on Brilinta. HOME MEDICATIONS: 1. Amlodipine. 2. Flomax. 3. Toprol. 4. Aspirin. 5. Tylenol. 6. Brilinta. ALLERGIES: MORPHINE. FAMILY HISTORY: Heart disease. SOCIAL HISTORY: Tobacco, negative. Alcohol, socially. Recreational use, negative. PHYSICAL EXAM: The patient is not in acute distress. He has no tenderness to palpation of the thoracic and lumbar spine. His range of motion reveals fine. He is awake, alert, and oriented x3. His pupils are equal and reactive. Cranial nerves II through XII grossly intact. Motor 4-5/5 in all extremities. Sensory grossly intact to light touch. He has had decreased sensation in the left thumb and index finger. Deep tendon reflexes +1 bilaterally. No clonus, no Babinski. Pereira is negative. Position intact. Tinel sign negative. DIAGNOSTIC STUDIES/LAB DATA: The patient had CT scan of the brain that did not reveal any acute injuries. The patient also had CT scan of the cervical spine, revealed degenerative disk disease with grade 1 spondylolisthesis at the C4-5 with disk vacuum phenomenon at C5-6 and 6-7 without evidence of fractures. Patient also had an MRI of his lumbar spine revealing degenerative disk disease from C4-C7 with grade 1 spondylolisthesis at C4-5 with left neuroforaminal stenosis at C5-6 bilateral neuroforaminal stenosis, left worse than the right, and C6-7 left neuroforaminal stenosis. He did have a CTA of his chest that revealed that he does have increased thoracic kyphosis and a degree of deformity. ASSESSMENT: The patient is a very pleasant 72-year-old, right-handed female with complaints of left side neck pain and left upper extremity numbness with MRI findings consistent with degenerative disk disease. PLAN: The patient seems to have evidence of left mostly C6 radiculopathy with significant degenerative disk disease in the cervical spine. We discussed nonoperative and operative treatment options as well as surgical intervention in the form of anterior cervical diskectomy and fusion at C5-6 and possibly C4- 5 and 6-7 levels, with the understanding that the patient does have his cervical thoracic kyphosis that in the future he may have need to have additional procedures. Because of the patient's age and his comorbidities as well as the mild nature of his symptoms, patient elected to proceed with conservative treatment. We discussed about pain medication, physical therapy, strengthening of his core muscles as well as possibility for steroid injections. The patient understands risks and benefits of surgical procedure also and at this point, we will continue with conservative treatment. I will be happy to see the patient in our office if he would like to discuss about surgical treatment options in the future. Full instructions were given to the patient. Thank you for allowing us to participate in the care of this patient. Please do not hesitate to contact our office in case you have any further questions or concerns regarding the care of this patient. [id number]/[facility] #: [id number] LAITH
--- NOTE | 2018-10-10 05:52 | DS ---
CC: Dr. Beavers; Dr. Bartlett; Dr. Munson.* DISCHARGE SUMMARY: DATE OF ADMISSION: DATE OF DISCHARGE: 10/09/18 PROVIDER: Jesi Enamorado NP. ATTENDING PHYSICIAN: Dr. Patel * (dictated Jesi Enamorado NP). PRIMARY CARE PROVIDER: Dr. Beavers. CONSULTING NEUROSURGEON: Dr. Bartlett. SUPERVISOR MOLD SHOP: Dr. Munson. PRIMARY DIAGNOSES: 1. Syncope. 2. Orthostatic hypotension. 3. Left shoulder pain. SECONDARY DIAGNOSES: 1. Coronary artery disease. 2. Hypertension. MEDICATIONS ON DISCHARGE: 1. Flomax 0.4 mg p.o. daily. 2. Metoprolol 12.5 mg p.o. daily. 3. Lipitor 80 mg p.o. daily. 4. Aspirin 81 mg p.o. daily. 5. Tylenol 325 mg p.o. q.6 hours p.r.n. 6. Brilinta 90 mg p.o. b.i.d. New Medications on Discharge: Gabapentin 100 mg p.o. t.i.d. DIAGNOSTIC STUDIES WHILE IN THE HOSPITAL: Brain CT: No intracranial mass or hemorrhage noted. Cervical spine CT: Osteopenia, degenerative disc disease and osteoarthritis. No acute osseous injury to the cervical spine. Chest x-ray: No active cardiopulmonary disease noted. Cervical spine MRI: Degenerative disc disease and osteoarthritis, moderate narrowing of the central canal at C5 to C6 with mild narrowing at C6 to C7. There is multi-level neuroforaminal narrowing described above. Chest/thorax CTA: No pulmonary arterial filling defect to suggest pulmonary embolism. Transthoracic echo: Mild concentric LV hypertrophy, normal LV systolic function , estimated EF 55% to 60%, abnormal LV diastolic function is observed. There an E/A reversal in the mitral valve flow pattern suggestive of diastolic dysfunction. The right atrium is mildly dilated. There is trace aortic regurgitation. There is [id number] mitral regurgitation. There is trace- to-mild tricuspid regurgitation. There is evidence of qybu-ra-yotmdqfb pulmonary hypertension. Shoulder x-ray, no acute osseous injury. If symptoms persist, recommend repeat imaging. HOSPITAL COURSE: The patient is a 72-year-old male with past medical history of hypertension; coronary artery disease, status post stent placement; BPH; right hip fracture; prostate cancer; history of syncope in May of this year thought to be secondary to bradycardia (decreased beta-yessica dose at that time ), who presented to the ED after having a syncopal episode. The patient reports getting up in the middle of the night to get some Tylenol for his shoulder pain, which started a few days prior and when he stood up, he started feeling dizzy and then fainted. Prior to this, he was in his usual state of health. The patient denied any chest pain or shortness of breath. He denied any recent illness, vomiting or nausea, fever or chills, dark stools or coffee- ground emesis. He describes the shoulder pain as radiating down his arm with tingling down to his pointer finger and decreased sensation in the finger tip. Of note he was recently started on amlodipine 8 days ago after he was found to have an elevated blood pressure while undergoing cardiac rehab. The patient's orthostatic blood pressure was checked in the ED and upon standing, his blood pressure dropped to 76/60. Also of note, the patient also had an elevated D- dimer on admission and a CTA was done with no evidence of PE. The hospitalist team was asked to admit this patient for further workup of his syncopal episode. The patient did undergo a complete workup of his syncope. The patient underwent an echocardiogram, which was similar to his prior echo. He was monitored on telemetry, which showed no irregular heart rhythms. His heart rate was WNL, with the lowest recorded heart rate of 57, but the patient's HR was otherwise in the 60s and 70s, and the patient's heart rate was in the 70s during his episode of orthostatic hypotension in the ED. The patient's amlodipine was held as this was thought to be a contributing factor to his hypotension. The patient received hydration with IV fluids and when repeat orthostatics were done the following day, they were normal. At the time of discharge, the patient is normotensive. I am am discharging him having discontinued the amplodipine, however, further antihypertensive therapy should be discussed with the patient' s primary care provider and Dr. Munson. The patient also received workup for his recent onset left shoulder pain while admitted. Workup included a cervical spine CT, shoulder x-ray, and cervical spine MRI. The MRI did demonstrate severe bilateral neuroforaminal narrowing at C5 to C6 and moderate narrowing of the central canal, which corresponds with the patient's symptoms of the left shoulder pain and tingling down to his pointer finger as well as decreased sensation in the finger tip. Because of this finding, a neurosurgical consult was ordered. The patient was seen by Dr. Bartlett, who discussed the possibility of surgical intervention, however, at this juncture, the patient would like to pursue medical management and conservative therapy. Dr. Bartlett did recommend physical therapy. The patient did receive gabapentin as an inpatient and did feel some relief of his neuropathic pain, so he will be continued on this medication and should discuss physical therapy with his primary care provider. DISPOSITION: The patient is stable for discharge to home. DIET: Heart-healthy diet. ACTIVITY: As tolerated. The patient did inquire about wood chopping and bicycle riding and was instructed to avoid these strenuous activities until following up with Dr. Munson on Thursday. FOLLOWUP: The patient is instructed to follow up with his primary care provider in 4 to 7 days. The patient reports that he already has an appointment with Dr. Munson for Thursday and can discuss the events of this hospitalization and need for ongoing antihypertensive therapy at that time. The patient should also feel free to reach out to Dr. Bartlett should he feel like he would like surgical intervention for his degenerative disc disease. TIME SPENT: Time spent for this discharge was 45 minutes. JESI ENAMORADO, MORA [id number]/[facility] #: [id number] LAITH
== END 2018-10-09 17:30 | disposition home or self-care (01) ==
LOC: ED 08:43 → MEDTELE 12:45
PROVIDERS: ADMIT Hospitalist; ATTEND Hospitalist
DX: I95.1 Orthostatic hypotension (principal); M25.512 Pain in left shoulder; I25.10 Atherosclerotic heart disease of native coronary artery without angina pectoris; I10 Essential (primary) hypertension; Z95.5 Presence of coronary angioplasty implant and graft; N40.0 Benign prostatic hyperplasia without lower urinary tract symptoms; Z85.46 Personal history of malignant neoplasm of prostate; Z87.81 Personal history of (healed) traumatic fracture; E78.5 Hyperlipidemia, unspecified
CPT/HCPCS: 36415; 70450; 71045; 71275; 72125; 72141; 80048; 80053; 80061; 80320; 81003; 82533; 83036; 83605; 83735; 84443; 84484; 85025; 85379; 85610; 85730; 93005; 93306; 96366; 96372; 96375; 96376; 99284; A9270-GY; G0378; G0480; J1644; J3475; Q9967